=== PATIENT | female | born 1935 | race Caucasian/White ===

== ENCOUNTER 2019-02-07 01:02 | Inpatient (IN) | payer MEDICARE ==
[~2019-02-07] VITALS: Ht 162.6 cm; Wt 96.1 kg
[2019-02-07 02:16] LABS: CLARITY,URINE SLIGHTLY CLOUDY (Clear); COLOR,URINE YELLOW (Yellow); GLUCOSE, URINE NEGATIVE (Neg); KETONES,URINE TRACE mg/dl (Neg); LEUKOCYTE ESTERASE ,URINE TRACE (Neg); NITRITES, URINE NEGATIVE (Neg); OCCULT BLOOD,URINE NEGATIVE (Neg); PROTEIN,URINE 30 mg/dl (Neg); UROBILINOGEN,URINE 0.2 E.U/dL (0.2-1.0)
[2019-02-07 02:26] LABS: UA COLLECTION TYPE CLN CATCH MIDSTREAM
[2019-02-07 02:27] LABS: BACTERIA,URINE FEW /HPF (Neg); MUCUS STRANDS FEW /LPF (Neg); RBC,URINE 0-2 /HPF (0-2); RENAL CELLS, URINE FEW /HPF; SQUAMOUS EPITHELIAL CELL,UR FEW /LPF (FEW)
[2019-02-07] MEDS ORDERED: HYDROcodone/acetaminophen 10/325mg tab PO ONE (03:05)
[2019-02-07] MEDS ORDERED: ondansetron/PF 4mg/2ml inj IV ONE (03:05)
[2019-02-07] MEDS ORDERED: normal saline 1000ML IV soln IVB ONE ×2 (03:05→04:15)
[2019-02-07 03:22] LABS: BASOPHILS % (AUTO) 0.2 % (0-1); EOSINOPHILS % (AUTO) 0 % (0-6); HEMATOCRIT 46.9 % (35.0-45.0); HEMOGLOBIN 15.8 g/dl (12.0-16.0); LYMPHOCYTES # (AUTO) 0.6 X10'3 (1.1-4.8); LYMPHOCYTES % (AUTO) 4.7 % (21-51); MEAN CORPUSCULAR HEMOGLOBIN 29.6 PG (27.0-31.0); MEAN CORPUSCULAR HGB CONC 33.7 g/dL (33.0-36.5); MEAN CORPUSCULAR VOLUME 87.8 FL (78-98); MEAN PLATELET VOLUME 9.9 FL (7.4-10.4); MONOCYTES # (AUTO) 0.5 X10'3 (0-0.9); MONOCYTES % (AUTO) 3.9 % (2-12); NEUTROPHILS # (AUTO) 12.1 X10'3 (1.8-7.7); NEUTROPHILS % (AUTO) 91.2 % (42-75); PLATELET COUNT 246 X10'3 (140-440); RED BLOOD COUNT 5.34 X10'6 (4.20-5.60); RED CELL DISTRIBUTION WIDTH 14.5 % (11.5-14.5); WHITE BLOOD COUNT 13.3 X10'3 (4.5-11.0)
--- NOTE | 2019-02-07 03:40 | NUR ---
after taking po med she had episode of nausea and vomited 20 mls of the water she consumed but the po med was not in vomit bag. Pt layed down, cool washclothe to forehead and covered up. She is feeling no more nausea. Daughter at BS. Lights dimmed so she can rest.
[2019-02-07 03:50] LABS: ALANINE AMINOTRANSFERASE 17 U/L (12-78); ALBUMIN 3.7 G/DL (3.4-5.0); ALBUMIN/GLOBULIN RATIO 0.9 (1.1-1.5); ALKALINE PHOSPHATASE 122 IU/L (46-116); ANION GAP 11 (8-16); ASPARTATE AMINO TRANSFERASE 24 U/L (10-37); BILIRUBIN,TOTAL 0.8 MG/DL (0.1-1.0); BLOOD UREA NITROGEN 20 MG/DL (7-18); BUN/CREATININE RATIO 18.5 (6.6-38.0); CALCIUM 9.2 MG/DL (8.5-10.1); CHLORIDE 102 MMOL/L (99-107); CREATININE 1.08 MG/DL (0.40-0.90); GLUCOSE 125 MG/DL (70-104); LIPASE 87 U/L (73-393); SODIUM 136 MMOL/L (135-145); TOTAL PROTEIN 7.7 G/DL (6.4-8.2); eGFR 48 ML/MIN
[2019-02-07 03:51] LABS: POTASSIUM 4.5 MMOL/L (3.5-5.1)
[2019-02-07] MEDS ORDERED: piperacillin/tazo 3.375gm/50ml 50 ML IV ONE (04:15)
[2019-02-07] MEDS ORDERED: AMLO-93 PO (04:34)
[2019-02-07] MEDS ORDERED: OMEP40CA37 PO (04:34)
[2019-02-07] MEDS ORDERED: ZOLP5TAB8 PO (04:34)
[2019-02-07] MEDS ORDERED: FURO-150 PO (04:34)
[2019-02-07] MEDS ORDERED: SIMV20TA5 PO (04:34)
[2019-02-07] MEDS ORDERED: LISI40TA4 PO (04:34)
[2019-02-07] MEDS ORDERED: METO1TAB25 PO (04:34)
[2019-02-07] MEDS ORDERED: HYDROmorphone inj. 0.5 MG/0.5 ML DISP.SYRIN IV ONE (04:45)
[2019-02-07] MEDS ORDERED: magnesium hydroxide 30ml (MOM) UD suspension PO PRN (05:00)
[2019-02-07] MEDS ORDERED: morphine 2 MG/ML inj. syringe IV PRN ×2 (05:00)
[2019-02-07] MEDS ORDERED: acetaminophen 325mg tablet PO PRN ×2 (05:00)
[2019-02-07] MEDS ORDERED: mag hydrox/Alum hydrox/simeth 30ml oral suspension PO PRN (05:00)
--- NOTE | 2019-02-07 05:08 | NUR ---
PT UP TO BR WITH DAUGHTER
[2019-02-07] MEDS: normal saline 1000ml 1,000 ML IV SCH ×2 (06:43→16:26)
--- NOTE | 2019-02-07 07:37 | NUR ---
Received report from PHI Saldivar in Emergency Room. Patient arrived with family at bedside. Patient reports minimal pain at this time. Will continue to monitor.
[2019-02-07 07:45] VITALS: BP 160/66
[2019-02-07] MEDS ORDERED: non-formulary drug (Omeprazole (Prilosec) 0.5 CAP) PO SCH (08:00)
[2019-02-07] MEDS ORDERED: non-formulary drug (Metoprolol/Hydrochlorothiazide 50/25 MG* (Lopressor Hct 50/25 MG*) 1 T PO SCH (08:00)
[2019-02-07] MEDS: HYDROchlorothiazide 25mg tablet PO SCH (08:00)
[2019-02-07] MEDS ORDERED: non-formulary drug (Lisinopril* 1 TAB) PO SCH (08:00)
[2019-02-07] MEDS: pantoprazole 40mg Tablet.DR PO SCH (08:25)
[2019-02-07] MEDS: metoprolol tartrate 50mg tablet PO SCH (08:28)
[2019-02-07] MEDS: lisinopril 20mg tablet PO SCH (08:29)
[2019-02-07] MEDS: piperacillin/tazo 4.5gm/100ml 100 ML IV SCH ×3 (10:15→23:45)
[2019-02-07 11:30] VITALS: BP 120/63
[2019-02-07] MEDS ORDERED: HYDROmorphone 1 mg/ml syringe IV PRN (11:30)
[2019-02-07] MEDS: HYDROmorphone inj. 0.5 MG/0.5 ML DISP.SYRIN IV PRN ×2 (11:54→16:15)
--- NOTE | 2019-02-07 18:15 | NUR ---
Received report from PHI Foster. Patient is awake and alert on 2L NC, in no apparent distress. Call light and items of frequent use within reach. Will continue to monitor.
--- NOTE | 2019-02-07 18:30 | NUR ---
Problems reprioritized. Patient report given, questions answered & plan of care reviewed with PHI Ragland.
[2019-02-07 20:00] VITALS: BP 105/48
[2019-02-07] MEDS ORDERED: non-formulary drug (Simvastatin* (Zocor*) 2 TAB) PO SCH (21:00)
[2019-02-07] MEDS: HYDROcodone/acetaminophen 5mg/325mg tablet PO PRN (21:25)
[2019-02-07] MEDS: atorvastatin 10mg tablet PO SCH (21:25)
[2019-02-07] MEDS: zolpidem 5mg tablet PO PRN (21:29)
[2019-02-08] VITALS: BP 105/45
[2019-02-08] MEDS: normal saline 1000ml 1,000 ML IV SCH ×3 (00:57→19:31)
--- NOTE | 2019-02-08 06:15 | NUR ---
Problems reprioritized. Patient report given, questions answered & plan of care reviewed with PHI Goodrich.
[2019-02-08 06:17] LABS: BASOPHILS % (AUTO) 0.1 % (0-1); EOSINOPHILS % (AUTO) 0 % (0-6); HEMATOCRIT 36.8 % (35.0-45.0); HEMOGLOBIN 12.4 g/dl (12.0-16.0); LYMPHOCYTES # (AUTO) 1.1 X10'3 (1.1-4.8); LYMPHOCYTES % (AUTO) 7.2 % (21-51); MEAN CORPUSCULAR HEMOGLOBIN 29.8 PG (27.0-31.0); MEAN CORPUSCULAR HGB CONC 33.6 g/dL (33.0-36.5); MEAN CORPUSCULAR VOLUME 88.6 FL (78-98); MONOCYTES # (AUTO) 0.5 X10'3 (0-0.9); MONOCYTES % (AUTO) 3.1 % (2-12); NEUTROPHILS # (AUTO) 13.5 X10'3 (1.8-7.7); NEUTROPHILS % (AUTO) 89.6 % (42-75); PLATELET COUNT 179 X10'3 (140-440); RED BLOOD COUNT 4.15 X10'6 (4.20-5.60); RED CELL DISTRIBUTION WIDTH 14.9 % (11.5-14.5); WHITE BLOOD COUNT 15.1 X10'3 (4.5-11.0)
--- NOTE | 2019-02-08 06:25 | NUR ---
Patient in room [facility]I 359. I have received report from PHI Ragland and had the opportunity to ask questions and assume patient care.
[2019-02-08 06:33] LABS: ALBUMIN 2.4 G/DL (3.4-5.0); ANION GAP 9 (8-16); BLOOD UREA NITROGEN 25 MG/DL (7-18); BUN/CREATININE RATIO 22.1 (6.6-38.0); CALCIUM 8.7 MG/DL (8.5-10.1); CHLORIDE 105 MMOL/L (99-107); CREATININE 1.13 MG/DL (0.40-0.90); GLUCOSE 79 MG/DL (70-104); SODIUM 138 MMOL/L (135-145); TOTAL CARBON DIOXIDE 24.3 MMOL/L (24-32); eGFR 46 ML/MIN
[2019-02-08 07:36] LABS: PLATELET ESTIMATE NORMAL; TOTAL CELLS COUNTED 100
[2019-02-08 08:00] VITALS: BP 112/42
[2019-02-08] MEDS: pantoprazole 40mg Tablet.DR PO SCH (09:11)
[2019-02-08] MEDS: piperacillin/tazo 4.5gm/100ml 100 ML IV SCH ×3 (09:12→23:07)
[2019-02-08] MEDS: lisinopril 20mg tablet PO SCH (09:13)
[2019-02-08] MEDS: HYDROchlorothiazide 25mg tablet PO SCH (09:13)
[2019-02-08] MEDS: metoprolol tartrate 50mg tablet PO SCH (09:13)
[2019-02-08] MEDS: HYDROcodone/acetaminophen 10/325mg tab PO PRN ×3 (09:14→21:53)
[2019-02-08 11:20] VITALS: BP 114/57
--- NOTE | 2019-02-08 18:15 | NUR ---
Received report from PHI Goodrich. Assumed patient care. Call light and items of frequent use within reach. Will continue to monitor.
--- NOTE | 2019-02-08 18:20 | NUR ---
Problems reprioritized. Patient report given, questions answered & plan of care reviewed with PHI Ragland.
[2019-02-08] MEDS: lactobacillus rhamnosus 10,000 MMU CELLS/CAPSULE PO SCH (19:22)
[2019-02-08 20:00] VITALS: BP 129/37
[2019-02-08] MEDS: atorvastatin 10mg tablet PO SCH (21:53)
[2019-02-08] MEDS: zolpidem 5mg tablet PO PRN (23:07)
[2019-02-09] VITALS: BP 104/56
[2019-02-09 05:21] LABS: BASOPHILS % (AUTO) 0.1 % (0-1); EOSINOPHILS % (AUTO) 0.2 % (0-6); HEMATOCRIT 35.6 % (35.0-45.0); HEMOGLOBIN 11.8 g/dl (12.0-16.0); LYMPHOCYTES # (AUTO) 0.9 X10'3 (1.1-4.8); LYMPHOCYTES % (AUTO) 6.4 % (21-51); MEAN CORPUSCULAR HEMOGLOBIN 29.3 PG (27.0-31.0); MEAN CORPUSCULAR HGB CONC 33.2 g/dL (33.0-36.5); MEAN CORPUSCULAR VOLUME 88.3 FL (78-98); MEAN PLATELET VOLUME 9.6 FL (7.4-10.4); MONOCYTES # (AUTO) 0.5 X10'3 (0-0.9); MONOCYTES % (AUTO) 3.4 % (2-12); NEUTROPHILS # (AUTO) 12.8 X10'3 (1.8-7.7); NEUTROPHILS % (AUTO) 89.9 % (42-75); PLATELET COUNT 175 X10'3 (140-440); RED BLOOD COUNT 4.03 X10'6 (4.20-5.60); RED CELL DISTRIBUTION WIDTH 14.9 % (11.5-14.5); WHITE BLOOD COUNT 14.2 X10'3 (4.5-11.0)
[2019-02-09 05:50] LABS: ALBUMIN 2.2 G/DL (3.4-5.0); ANION GAP 9 (8-16); BLOOD UREA NITROGEN 27 MG/DL (7-18); BUN/CREATININE RATIO 23.5 (6.6-38.0); CALCIUM 8.6 MG/DL (8.5-10.1); CHLORIDE 104 MMOL/L (99-107); CREATININE 1.15 MG/DL (0.40-0.90); GLUCOSE 57 MG/DL (70-104); POTASSIUM 3.3 MMOL/L (3.5-5.1); SODIUM 136 MMOL/L (135-145); TOTAL CARBON DIOXIDE 22.9 MMOL/L (24-32); eGFR 45 ML/MIN
--- NOTE | 2019-02-09 06:30 | NUR ---
Problems reprioritized. Patient report given, questions answered & plan of care reviewed with PHI Beckman.
[2019-02-09 07:00] VITALS: BP 119/51
--- NOTE | 2019-02-09 07:11 | NUR ---
Patient in room JACKI 359. I have received report from warren YIP and had the opportunity to ask questions and assume patient care.
[2019-02-09] MEDS: piperacillin/tazo 4.5gm/100ml 100 ML IV SCH ×2 (09:12→16:25)
[2019-02-09] MEDS: HYDROchlorothiazide 25mg tablet PO SCH (09:12)
[2019-02-09] MEDS: lisinopril 20mg tablet PO SCH (09:12)
[2019-02-09] MEDS: lactobacillus rhamnosus 10,000 MMU CELLS/CAPSULE PO SCH ×2 (09:12→21:29)
[2019-02-09] MEDS: metoprolol tartrate 50mg tablet PO SCH (09:12)
[2019-02-09] MEDS: pantoprazole 40mg Tablet.DR PO SCH (09:16)
[2019-02-09] MEDS: HYDROcodone/acetaminophen 10/325mg tab PO PRN ×2 (09:17→23:00)
[2019-02-09] MEDS: normal saline 1000ml 1,000 ML IV SCH ×3 (09:20→19:45)
[2019-02-09] MEDS ORDERED: methylnaltrexone br 12mg/0.6ml inj***SubQ only SQ ONE (10:50)
[2019-02-09 11:00] VITALS: BP 99/61
[2019-02-09] MEDS ORDERED: magnesium Cl slow-release 64mg tablet PO PRN (11:05)
[2019-02-09] MEDS ORDERED: magnesium 2GM in 50ml NS 50 ML IV PRN (11:05)
[2019-02-09] MEDS ORDERED: potassium Cl 20 mEq SR tablet PO PRN ×2 (11:05)
[2019-02-09] MEDS ORDERED: magnesium 4gm in 100ml NS 100 ML IV PRN (11:05)
--- NOTE | 2019-02-09 12:00 | NUR ---
patient up ad fran to BR, to continue on icechips . family at bedside. B/P 99/61 in am rechecked 119/51. Realistor given, per dr whittington. Otherwise resting comfortably .Report given to Erin YIP
[2019-02-09] MEDS: potassium CL 10mEq/100ml bag 100 ML IV PRN ×2 (21:15→22:59)
[2019-02-09] MEDS: atorvastatin 10mg tablet PO SCH (21:29)
[2019-02-09] MEDS: zolpidem 5mg tablet PO PRN (22:59)
[2019-02-09 23:44] VITALS: BP 97/55
[2019-02-10] VITALS: BP 123/56
[2019-02-10] MEDS: piperacillin/tazo 4.5gm/100ml 100 ML IV SCH ×4 (00:36→23:23)
[2019-02-10] MEDS: normal saline 1000ml 1,000 ML IV SCH (02:57)
[2019-02-10] MEDS ORDERED: magnesium hydroxide 30ml (MOM) UD suspension PO ONE (05:55)
--- NOTE | 2019-02-10 06:00 | NUR ---
Patient in room JACKI 359. I have received report from CANDIE YIP and had the opportunity to ask questions and assume patient care.
[2019-02-10 06:10] LABS: BASOPHILS % (AUTO) 0 % (0-1); EOSINOPHILS # (AUTO) 0.1 X10'3 (0-0.9); EOSINOPHILS % (AUTO) 0.5 % (0-6); HEMATOCRIT 36.8 % (35.0-45.0); HEMOGLOBIN 12.5 g/dl (12.0-16.0); LYMPHOCYTES # (AUTO) 0.8 X10'3 (1.1-4.8); LYMPHOCYTES % (AUTO) 5.5 % (21-51); MEAN CORPUSCULAR HEMOGLOBIN 30.2 PG (27.0-31.0); MEAN PLATELET VOLUME 9.5 FL (7.4-10.4); MONOCYTES # (AUTO) 0.8 X10'3 (0-0.9); MONOCYTES % (AUTO) 5.7 % (2-12); NEUTROPHILS # (AUTO) 13.1 X10'3 (1.8-7.7); NEUTROPHILS % (AUTO) 88.3 % (42-75); PLATELET COUNT 185 X10'3 (140-440); RED BLOOD COUNT 4.13 X10'6 (4.20-5.60); WHITE BLOOD COUNT 14.9 X10'3 (4.5-11.0)
[2019-02-10 06:38] LABS: ANION GAP 13 (8-16); BLOOD UREA NITROGEN 24 MG/DL (7-18); CHLORIDE 104 MMOL/L (99-107); CREATININE 1.09 MG/DL (0.40-0.90); POTASSIUM 3.5 MMOL/L (3.5-5.1); SODIUM 136 MMOL/L (135-145); TOTAL CARBON DIOXIDE 18.7 MMOL/L (24-32); eGFR 48 ML/MIN
[2019-02-10 06:43] LABS: GLUCOSE 47 MG/DL (70-104)
[2019-02-10] MEDS ORDERED: dextrose 50%-water 50ml dispensing syringe IV PRN (06:50)
--- NOTE | 2019-02-10 06:51 | NUR ---
Problems reprioritized. Patient report given, questions answered & plan of care reviewed with Mercedez YIP.
[2019-02-10 07:00] VITALS: BP 121/48
[2019-02-10] MEDS: dextrose 5%-normal saline 1,000 ML IV SCH ×2 (07:00→17:27)
[2019-02-10] MEDS: lactobacillus rhamnosus 10,000 MMU CELLS/CAPSULE PO SCH ×2 (08:50→19:53)
[2019-02-10] MEDS: lisinopril 20mg tablet PO SCH (08:50)
[2019-02-10] MEDS: pantoprazole 40mg Tablet.DR PO SCH (08:50)
[2019-02-10] MEDS: metoprolol tartrate 50mg tablet PO SCH (08:51)
[2019-02-10] MEDS: HYDROchlorothiazide 25mg tablet PO SCH (08:51)
[2019-02-10] MEDS: diatr meglu/diatrizoate 30ml oral sol.-(3 dose) bottle PO SCH ×3 (08:52→15:53)
[2019-02-10 11:00] VITALS: BP 151/91
[2019-02-10] MEDS ORDERED: iohexol 300mg/ml 100ml inj. ONE (14:20)
[2019-02-10] MEDS: HYDROcodone/acetaminophen 10/325mg tab PO PRN (17:38)
--- NOTE | 2019-02-10 18:21 | NUR ---
Problems reprioritized. Patient report given, questions answered & plan of care reviewed with DONALD YIP.
--- NOTE | 2019-02-10 19:37 | NUR ---
Patient in room [facility] 359. I have received report from PHI Newsome and had the opportunity to ask questions and assume patient care. Addendum: 02/10/19 at 1938 by Hafsa Mcmahan RN Amended: Links added.
[2019-02-10] MEDS: potassium CL 20mEq in D5-1/2NS 1,000 ML IV SCH (19:53)
[2019-02-10] MEDS: atorvastatin 10mg tablet PO SCH (19:53)
[2019-02-10 20:00] VITALS: BP 106/79
[2019-02-10] MEDS: zolpidem 5mg tablet PO PRN (23:23)
[2019-02-11] VITALS (17 sets, daily range): BP systolic 98–184; BP diastolic 52–99
[2019-02-11] MEDS: potassium CL 20mEq in D5-1/2NS 1,000 ML IV SCH ×2 (03:30→14:01)
[2019-02-11 05:56] LABS: BASOPHILS % (AUTO) 0.1 % (0-1); EOSINOPHILS # (AUTO) 0.3 X10'3 (0-0.9); EOSINOPHILS % (AUTO) 2.2 % (0-6); HEMATOCRIT 38.2 % (35.0-45.0); HEMOGLOBIN 12.6 g/dl (12.0-16.0); LYMPHOCYTES % (AUTO) 7.7 % (21-51); MEAN CORPUSCULAR HEMOGLOBIN 29.2 PG (27.0-31.0); MEAN CORPUSCULAR VOLUME 88.4 FL (78-98); MEAN PLATELET VOLUME 8.7 FL (7.4-10.4); MONOCYTES # (AUTO) 1.4 X10'3 (0-0.9); MONOCYTES % (AUTO) 10.1 % (2-12); NEUTROPHILS # (AUTO) 10.8 X10'3 (1.8-7.7); NEUTROPHILS % (AUTO) 79.9 % (42-75); PLATELET COUNT 225 X10'3 (140-440); RED BLOOD COUNT 4.32 X10'6 (4.20-5.60); RED CELL DISTRIBUTION WIDTH 14.9 % (11.5-14.5); WHITE BLOOD COUNT 13.6 X10'3 (4.5-11.0)
[2019-02-11 06:03] LABS: ANION GAP 9 (8-16); BLOOD UREA NITROGEN 10 MG/DL (7-18); BUN/CREATININE RATIO 10.3 (6.6-38.0); CALCIUM 7.9 MG/DL (8.5-10.1); CHLORIDE 104 MMOL/L (99-107); CREATININE 0.97 MG/DL (0.40-0.90); GLUCOSE 130 MG/DL (70-104); SODIUM 137 MMOL/L (135-145); TOTAL CARBON DIOXIDE 24.3 MMOL/L (24-32); eGFR 55 ML/MIN
--- NOTE | 2019-02-11 06:26 | NUR ---
Problems reprioritized. Patient report given, questions answered & plan of care reviewed with PHI Brown. Addendum: 02/11/19 at 626 by Hafsa Mcmahan RN Amended: Links added.
[2019-02-11 06:32] LABS: POTASSIUM 2.7 MMOL/L (3.5-5.1)
--- NOTE | 2019-02-11 07:15 | NUR ---
PAGER ID: [phone] MESSAGE: [id number] Jaclyn Coats critical k 2.7, will replace per prot. BP 150/80 hr 102 (Maury), lisinopril, metoprolol, hydrochlorothiazide ordered. will admin. and reassess. Stephanie YIP [phone]
--- NOTE | 2019-02-11 07:37 | NUR ---
PAGER ID: [phone] MESSAGE: [id number] Jaclyn HART [facility]. please call me to let me know if this NPO pt. can take her oral medications. Thank you Stephanie [phone]
--- NOTE | 2019-02-11 07:39 | NUR ---
returned page. oked oral medications for this pt. this AM
[2019-02-11] MEDS: pantoprazole 40mg Tablet.DR PO SCH (07:42)
[2019-02-11] MEDS: HYDROchlorothiazide 25mg tablet PO SCH (07:43)
[2019-02-11] MEDS: lactobacillus rhamnosus 10,000 MMU CELLS/CAPSULE PO SCH ×2 (07:43→19:51)
[2019-02-11] MEDS: lisinopril 20mg tablet PO SCH (07:43)
[2019-02-11] MEDS: metoprolol tartrate 50mg tablet PO SCH ×2 (07:43→20:14)
[2019-02-11] MEDS: piperacillin/tazo 4.5gm/100ml 100 ML IV SCH (07:50)
[2019-02-11] MEDS: HYDROmorphone inj. 0.5 MG/0.5 ML DISP.SYRIN IV PRN ×2 (09:27→15:46)
[2019-02-11] MEDS ORDERED: fentaNYL/PF 50MCG/1 ML 2ML syringe IV PRN (10:50)
[2019-02-11] MEDS ORDERED: LIDOcaine 1% (10mg/ml) 2ml vial SQ ONE (10:50)
--- NOTE | 2019-02-11 10:57 | NUR ---
PAGER ID: [phone] MESSAGE: [id number] Jaclyn Coats Pt. BP now 141/78. Still tachy HR 113. Fluids running at 100/hr. Stephanie YIP 0125
[2019-02-11] MEDS ORDERED: fentaNYL/PF 50MCG/1 ML 2ML syringe ONE (11:14)
[2019-02-11] MEDS ORDERED: midazolam 2 mg/2 ml injection ONE (11:14)
[2019-02-11] MEDS ORDERED: ondansetron/PF 4mg/2ml inj ONE (11:15)
--- NOTE | 2019-02-11 12:22 | NUR ---
PAGER ID: [phone] MESSAGE: [phone] Jaclyn Coats IR report that pt. was reaching HR of 150s on monitor. EKG per protocol. EKG displaying pt. is in afib. Stephanie [phone]
[2019-02-11] MEDS: potassium CL 10mEq/100ml bag 100 ML IV PRN ×8 (14:03→23:29)
--- NOTE | 2019-02-11 15:15 | NUR ---
RECEIVED EKG, READ IT, SEE ORDERS.
[2019-02-11 17:01] LABS: MAGNESIUM 2.1 MG/DL (1.5-2.4); PHOSPHORUS 1.4 MG/DL (2.3-4.5)
[2019-02-11] MEDS: piperacillin/tazo 3.375gm/50ml 50 ML IV SCH ×2 (17:07→23:34)
--- NOTE | 2019-02-11 18:46 | NUR ---
MD AWARE OF PT.'S STATED DX OF ACHALASIA, NO NEW ORDERS AT THIS TIME.
--- NOTE | 2019-02-11 18:47 | NUR ---
GAVE REPORT TO CINDY. FLUIDS RUNNING PER ORDER. PT HAS NO STATED NEEDS AT THIS TIME.
--- NOTE | 2019-02-11 18:48 | NUR ---
Patient in room [facility]I 359. I have received report from PHI Brown and had the opportunity to ask questions and assume patient care.
[2019-02-11] MEDS: HYDROcodone/acetaminophen 10/325mg tab PO PRN (19:51)
[2019-02-11] MEDS: atorvastatin 10mg tablet PO SCH (20:00)
--- NOTE | 2019-02-11 20:09 | NUR ---
pt's HR 158 in afib. notified. He ordered cardizem 60 mg q6h.
[2019-02-11] MEDS: enoxaparin 80mg/0.8ml syringe SUBCUT SCH (20:13)
[2019-02-11] MEDS: diltiazem 30mg tablet PO SCH (20:15)
[2019-02-11] MEDS: zolpidem 5mg tablet PO PRN (23:32)
--- NOTE | 2019-02-11 23:33 | NUR ---
Patient out of breath while at rest, only urinated 50 so far and bladder scan showed 30ml, we weighed pt and found she has gained 18 lbs in 4 days. Called MD to ask for lasix, MD ordered fluids to be stopped, and did not want to give lasix. Will continue to monitor.
[2019-02-12] VITALS: BP 91/60
[2019-02-12] MEDS: diltiazem 30mg tablet PO SCH ×4 (02:41→20:50)
[2019-02-12 05:17] LABS: BASOPHILS % (AUTO) 0.1 % (0-1); EOSINOPHILS % (AUTO) 0.1 % (0-6); HEMATOCRIT 41.3 % (35.0-45.0); HEMOGLOBIN 13.5 g/dl (12.0-16.0); LYMPHOCYTES # (AUTO) 1.4 X10'3 (1.1-4.8); LYMPHOCYTES % (AUTO) 10.1 % (21-51); MEAN CORPUSCULAR HGB CONC 32.8 g/dL (33.0-36.5); MEAN CORPUSCULAR VOLUME 88.4 FL (78-98); MONOCYTES # (AUTO) 1.3 X10'3 (0-0.9); MONOCYTES % (AUTO) 9.3 % (2-12); NEUTROPHILS # (AUTO) 10.9 X10'3 (1.8-7.7); NEUTROPHILS % (AUTO) 80.4 % (42-75); PLATELET COUNT 268 X10'3 (140-440); RED BLOOD COUNT 4.67 X10'6 (4.20-5.60); RED CELL DISTRIBUTION WIDTH 15.1 % (11.5-14.5); WHITE BLOOD COUNT 13.6 X10'3 (4.5-11.0)
[2019-02-12 05:30] LABS: ALBUMIN 1.7 G/DL (3.4-5.0); ANION GAP 6 (8-16); BLOOD UREA NITROGEN 13 MG/DL (7-18); BUN/CREATININE RATIO 9.6 (6.6-38.0); CHLORIDE 104 MMOL/L (99-107); CREATININE 1.36 MG/DL (0.40-0.90); GLUCOSE 104 MG/DL (70-104); MAGNESIUM 2.1 MG/DL (1.5-2.4); PHOSPHORUS 1.3 MG/DL (2.3-4.5); POTASSIUM 5.2 MMOL/L (3.5-5.1); SODIUM 132 MMOL/L (135-145); TOTAL CARBON DIOXIDE 22.5 MMOL/L (24-32); eGFR 37 ML/MIN
--- NOTE | 2019-02-12 06:34 | NUR ---
Problems reprioritized. Patient report given, questions answered & plan of care reviewed with PHI Moss.
--- NOTE | 2019-02-12 07:13 | NUR ---
Pagedawn JETT regarding K+ and low urine output. awaiting response.
[2019-02-12 07:16] VITALS: BP 118/72
[2019-02-12] MEDS: pantoprazole 40mg Tablet.DR PO SCH (07:32)
[2019-02-12] MEDS: lactobacillus rhamnosus 10,000 MMU CELLS/CAPSULE PO SCH ×2 (07:32→20:50)
[2019-02-12] MEDS: HYDROchlorothiazide 25mg tablet PO SCH (07:32)
[2019-02-12] MEDS: metoprolol tartrate 50mg tablet PO SCH ×2 (07:33→20:50)
[2019-02-12] MEDS: Neutra Phos packet PO SCH ×3 (07:33→20:51)
[2019-02-12] MEDS: enoxaparin 80mg/0.8ml syringe SUBCUT SCH ×2 (07:34→20:51)
[2019-02-12] MEDS: piperacillin/tazo 3.375gm/50ml 50 ML IV SCH ×3 (07:34→23:42)
[2019-02-12] MEDS: ondansetron/PF 4mg/2ml inj IV PRN (10:43)
[2019-02-12] MEDS: HYDROmorphone inj. 0.5 MG/0.5 ML DISP.SYRIN IV PRN (10:43)
[2019-02-12 11:35] VITALS: BP 101/61
--- NOTE | 2019-02-12 14:55 | NUR ---
initial: Patient in on full liquid diet starting this morning d/t diverticulitis with perforation and abscess formation per MD note, and pt is s/p percutaneous drainage. Was on clear liquids, sips and chips prior to full liquid diet. Poor PO intake for 4 days. Patient met at bedside and given written nutrition therapy handout for low fiber, high fiber with verbal review and discussed differences in nutrition needs with diverticulitis and diverticulosis. Patient declined all ONS. Recommend: 1. Advance diet as medically indicated to low fiber/low residue 2. Weight per rx Addendum: 02/12/19 at [address] Amended: Links added.
[2019-02-12] MEDS ORDERED: furosemide 20 MG/2 ML vial IV ONE (17:40)
[2019-02-12 17:50] VITALS: BP 115/65
[2019-02-12 18:00] VITALS: BP 145/84
--- NOTE | 2019-02-12 18:35 | NUR ---
Problems reprioritized. Patient report given, questions answered & plan of care reviewed with PHI Modi.
--- NOTE | 2019-02-12 18:36 | NUR ---
Patient in room [facility]I 359. I have received report from PHI Moss and had the opportunity to ask questions and assume patient care.
[2019-02-12] MEDS: atorvastatin 10mg tablet PO SCH (20:51)
[2019-02-13] VITALS: BP 90/60
[2019-02-13] MEDS: diltiazem 30mg tablet PO SCH ×4 (02:04→20:46)
--- NOTE | 2019-02-13 06:30 | NUR ---
Problems reprioritized. Patient report given, questions answered & plan of care reviewed with PHI Avilez.
--- NOTE | 2019-02-13 07:05 | NUR ---
Patient in room [facility]I 359. I have received report from Rian YIP and had the opportunity to ask questions and assume patient care.
[2019-02-13 07:07] VITALS: BP 126/59
[2019-02-13] MEDS ORDERED: furosemide 20 MG/2 ML vial IV SCH (08:00)
[2019-02-13] MEDS: lactobacillus rhamnosus 10,000 MMU CELLS/CAPSULE PO SCH ×2 (08:02→20:46)
[2019-02-13] MEDS: pantoprazole 40mg Tablet.DR PO SCH (08:03)
[2019-02-13] MEDS: metoprolol tartrate 50mg tablet PO SCH ×2 (08:03→20:47)
[2019-02-13] MEDS: Neutra Phos packet PO SCH ×3 (08:03→20:47)
[2019-02-13] MEDS: piperacillin/tazo 3.375gm/50ml 50 ML IV SCH ×3 (08:04→23:25)
[2019-02-13] MEDS: enoxaparin 80mg/0.8ml syringe SUBCUT SCH (08:04)
[2019-02-13] MEDS: HYDROmorphone inj. 0.5 MG/0.5 ML DISP.SYRIN IV PRN ×3 (08:31→23:31)
[2019-02-13 10:49] LABS: BASOPHILS % (AUTO) 0.1 % (0-1); EOSINOPHILS % (AUTO) 0.3 % (0-6); HEMATOCRIT 38.3 % (35.0-45.0); HEMOGLOBIN 12.6 g/dl (12.0-16.0); LYMPHOCYTES % (AUTO) 5.5 % (21-51); MEAN CORPUSCULAR HGB CONC 32.9 g/dL (33.0-36.5); MEAN CORPUSCULAR VOLUME 88.3 FL (78-98); MEAN PLATELET VOLUME 8.3 FL (7.4-10.4); MONOCYTES # (AUTO) 1.2 X10'3 (0-0.9); MONOCYTES % (AUTO) 6.7 % (2-12); NEUTROPHILS # (AUTO) 15.2 X10'3 (1.8-7.7); NEUTROPHILS % (AUTO) 87.4 % (42-75); PLATELET COUNT 310 X10'3 (140-440); RED BLOOD COUNT 4.34 X10'6 (4.20-5.60); RED CELL DISTRIBUTION WIDTH 15.2 % (11.5-14.5); WHITE BLOOD COUNT 17.4 X10'3 (4.5-11.0)
[2019-02-13 10:58] LABS: ALANINE AMINOTRANSFERASE 7 U/L (12-78); ALBUMIN 1.6 G/DL (3.4-5.0); ALBUMIN/GLOBULIN RATIO 0.4 (1.1-1.5); ALKALINE PHOSPHATASE 137 IU/L (46-116); ANION GAP 9 (8-16); ASPARTATE AMINO TRANSFERASE 9 U/L (10-37); BILIRUBIN,TOTAL 0.5 MG/DL (0.1-1.0); BLOOD UREA NITROGEN 23 MG/DL (7-18); BUN/CREATININE RATIO 12.8 (6.6-38.0); CALCIUM 7.9 MG/DL (8.5-10.1); CHLORIDE 99 MMOL/L (99-107); CREATININE 1.79 MG/DL (0.40-0.90); GLUCOSE 106 MG/DL (70-104); POTASSIUM 4.1 MMOL/L (3.5-5.1); SODIUM 131 MMOL/L (135-145); TOTAL CARBON DIOXIDE 22.8 MMOL/L (24-32); TOTAL PROTEIN 5.5 G/DL (6.4-8.2); eGFR 27 ML/MIN
[2019-02-13 11:00] VITALS: BP 118/53
--- NOTE | 2019-02-13 12:21 | NUR ---
Irrigated KYLE per MD orders
[2019-02-13] MEDS ORDERED: acetylcysteine 200 MG/ml 4ml vial PO ONE (14:45)
[2019-02-13 14:47] LABS: PHOSPHORUS 3.2 MG/DL (2.3-4.5)
[2019-02-13] MEDS: sodium bicarbonate (8.4%) inj. 50 MEQ in sodium chloride 0.45% 950 ML IV SCH ×2 (15:51→23:37)
--- NOTE | 2019-02-13 18:30 | NUR ---
Patient in room [facility]I 359. I have received report from PHI MCCLELLAN and had the opportunity to ask questions and assume patient care. Addendum: 02/13/19 at 1858 by Saulo Patel RN Amended: Links added.
--- NOTE | 2019-02-13 18:37 | NUR ---
Problems reprioritized. Patient report given, questions answered & plan of care reviewed with Shauna YIP.
[2019-02-13 20:15] VITALS: BP 109/54
[2019-02-13] MEDS: atorvastatin 10mg tablet PO SCH (20:47)
[2019-02-13] MEDS: acetylcysteine 200 MG/ml 4ml vial PO SCH (20:53)
[2019-02-13] MEDS: zolpidem 5mg tablet PO PRN (23:30)
[2019-02-13] MEDS: ondansetron/PF 4mg/2ml inj IV PRN (23:30)
[2019-02-14] VITALS: BP 107/63
[2019-02-14] MEDS: diltiazem 30mg tablet PO SCH ×4 (02:00→19:38)
[2019-02-14 05:45] LABS: ALANINE AMINOTRANSFERASE 7 U/L (12-78); ALBUMIN 1.7 G/DL (3.4-5.0); ALBUMIN/GLOBULIN RATIO 0.4 (1.1-1.5); ALKALINE PHOSPHATASE 144 IU/L (46-116); ANION GAP 11 (8-16); ASPARTATE AMINO TRANSFERASE 11 U/L (10-37); BILIRUBIN,TOTAL 0.5 MG/DL (0.1-1.0); BLOOD UREA NITROGEN 21 MG/DL (7-18); BUN/CREATININE RATIO 13.1 (6.6-38.0); CALCIUM 7.7 MG/DL (8.5-10.1); CHLORIDE 95 MMOL/L (99-107); GLUCOSE 78 MG/DL (70-104); MAGNESIUM 1.9 MG/DL (1.5-2.4); PHOSPHORUS 3.7 MG/DL (2.3-4.5); POTASSIUM 3.4 MMOL/L (3.5-5.1); SODIUM 130 MMOL/L (135-145); TOTAL CARBON DIOXIDE 23.8 MMOL/L (24-32); TOTAL PROTEIN 6.1 G/DL (6.4-8.2); eGFR 31 ML/MIN
[2019-02-14 05:47] LABS: BASOPHILS % (AUTO) 0.1 % (0-1); EOSINOPHILS # (AUTO) 0.1 X10'3 (0-0.9); EOSINOPHILS % (AUTO) 0.7 % (0-6); HEMATOCRIT 40.2 % (35.0-45.0); HEMOGLOBIN 13.2 g/dl (12.0-16.0); LYMPHOCYTES # (AUTO) 1.7 X10'3 (1.1-4.8); LYMPHOCYTES % (AUTO) 8.8 % (21-51); MEAN CORPUSCULAR HEMOGLOBIN 28.8 PG (27.0-31.0); MEAN CORPUSCULAR HGB CONC 32.9 g/dL (33.0-36.5); MEAN CORPUSCULAR VOLUME 87.5 FL (78-98); MONOCYTES # (AUTO) 1.2 X10'3 (0-0.9); MONOCYTES % (AUTO) 6.2 % (2-12); NEUTROPHILS # (AUTO) 16.7 X10'3 (1.8-7.7); NEUTROPHILS % (AUTO) 84.2 % (42-75); PLATELET COUNT 344 X10'3 (140-440); RED BLOOD COUNT 4.59 X10'6 (4.20-5.60); WHITE BLOOD COUNT 19.8 X10'3 (4.5-11.0)
--- NOTE | 2019-02-14 06:13 | NUR ---
Problems reprioritized. Patient report given, questions answered & plan of care reviewed with PHI Avilez. Addendum: 02/14/19 at 06 by Saulo Patel RN Amended: Links added.
[2019-02-14 07:00] VITALS: BP 129/70
[2019-02-14 07:16] LABS: ANISOCYTOSIS 1+; PLATELET ESTIMATE NORMAL; POLYCHROMASIA 1+; TOTAL CELLS COUNTED 100; TOXIC GRANULATION 3+
[2019-02-14] MEDS: Neutra Phos packet PO SCH ×2 (08:00→19:42)
[2019-02-14] MEDS: metoprolol tartrate 50mg tablet PO SCH ×2 (09:35→19:40)
[2019-02-14] MEDS: diatr meglu/diatrizoate 30ml oral sol.-(3 dose) bottle PO SCH ×3 (09:35→14:27)
[2019-02-14] MEDS: lactobacillus rhamnosus 10,000 MMU CELLS/CAPSULE PO SCH ×2 (09:35→19:38)
[2019-02-14] MEDS: pantoprazole 40mg Tablet.DR PO SCH (09:35)
[2019-02-14] MEDS: piperacillin/tazo 3.375gm/50ml 50 ML IV SCH ×3 (09:36→23:41)
[2019-02-14] MEDS: acetylcysteine 200 MG/ml 4ml vial PO SCH ×2 (09:36→19:37)
[2019-02-14] MEDS: enoxaparin 80mg/0.8ml syringe SUBCUT SCH (09:37)
[2019-02-14] MEDS: sodium bicarbonate (8.4%) inj. 50 MEQ in sodium chloride 0.45% 950 ML IV SCH ×3 (09:41→15:12)
[2019-02-14] MEDS: HYDROmorphone inj. 0.5 MG/0.5 ML DISP.SYRIN IV PRN ×3 (09:44→23:42)
[2019-02-14 11:00] VITALS: BP 109/60
--- NOTE | 2019-02-14 11:37 | NUR ---
Per Dr Rosa Ok to hold Neutraphos for now patient has lots of oral Pills this morning and does not tolerate very well
[2019-02-14] MEDS: ondansetron/PF 4mg/2ml inj IV PRN (15:12)
[2019-02-14] MEDS ORDERED: iohexol 300mg/ml 100ml inj. ONE (15:53)
[2019-02-14] MEDS ORDERED: magnesium Cl slow-release 64mg tablet PO PRN (17:40)
[2019-02-14] MEDS ORDERED: magnesium 4gm in 100ml NS 100 ML IV PRN (17:40)
[2019-02-14] MEDS ORDERED: potassium Cl 20 mEq SR tablet PO PRN ×2 (17:40)
[2019-02-14] MEDS: sodium chloride 0.45% 1,000 ML IV SCH (17:56)
--- NOTE | 2019-02-14 18:26 | NUR ---
Patient in room [facility]I 359. I have received report from PHI Avilez and had the opportunity to ask questions and assume patient care.
--- NOTE | 2019-02-14 19:00 | NUR ---
Problems reprioritized. Patient report given, questions answered & plan of care reviewed with Ellyn YIP and Onur RN.
[2019-02-14 19:20] LABS: MAGNESIUM 1.9 MG/DL (1.5-2.4); POTASSIUM 3.1 MMOL/L (3.5-5.1)
[2019-02-14] MEDS: atorvastatin 10mg tablet PO SCH (19:41)
[2019-02-14 20:00] VITALS: BP 147/71
[2019-02-14] MEDS ORDERED: POTASSIUM BICARB 20meq eff tab 20 MEQ TABLET.EFF PO PRN ×2 (21:18→21:19)
[2019-02-14] MEDS: zolpidem 5mg tablet PO PRN (23:42)
[2019-02-15] VITALS (14 sets, daily range): BP systolic 96–152; BP diastolic 28–79
[2019-02-15] MEDS: diltiazem 30mg tablet PO SCH ×4 (03:03→20:35)
[2019-02-15] MEDS: potassium CL 10mEq/100ml bag 100 ML IV PRN (03:17)
[2019-02-15] MEDS: sodium chloride 0.45% 1,000 ML IV SCH ×3 (04:05→16:34)
[2019-02-15 05:42] LABS: BASOPHILS % (AUTO) 0 % (0-1); EOSINOPHILS # (AUTO) 0.1 X10'3 (0-0.9); EOSINOPHILS % (AUTO) 0.5 % (0-6); HEMATOCRIT 37.3 % (35.0-45.0); HEMOGLOBIN 12.6 g/dl (12.0-16.0); LYMPHOCYTES # (AUTO) 0.8 X10'3 (1.1-4.8); LYMPHOCYTES % (AUTO) 5.1 % (21-51); MEAN CORPUSCULAR HEMOGLOBIN 29.3 PG (27.0-31.0); MEAN CORPUSCULAR HGB CONC 33.7 g/dL (33.0-36.5); MEAN CORPUSCULAR VOLUME 86.9 FL (78-98); MEAN PLATELET VOLUME 7.6 FL (7.4-10.4); MONOCYTES # (AUTO) 0.9 X10'3 (0-0.9); MONOCYTES % (AUTO) 6.1 % (2-12); NEUTROPHILS # (AUTO) 13.6 X10'3 (1.8-7.7); NEUTROPHILS % (AUTO) 88.3 % (42-75); PLATELET COUNT 354 X10'3 (140-440); RED BLOOD COUNT 4.29 X10'6 (4.20-5.60); RED CELL DISTRIBUTION WIDTH 15.1 % (11.5-14.5); WHITE BLOOD COUNT 15.4 X10'3 (4.5-11.0)
[2019-02-15 06:03] LABS: ALANINE AMINOTRANSFERASE 6 U/L (12-78); ALBUMIN 1.6 G/DL (3.4-5.0); ALBUMIN/GLOBULIN RATIO 0.4 (1.1-1.5); ALKALINE PHOSPHATASE 139 IU/L (46-116); ANION GAP 10 (8-16); ASPARTATE AMINO TRANSFERASE 15 U/L (10-37); BILIRUBIN,TOTAL 0.5 MG/DL (0.1-1.0); BLOOD UREA NITROGEN 17 MG/DL (7-18); BUN/CREATININE RATIO 13.3 (6.6-38.0); CALCIUM 7.4 MG/DL (8.5-10.1); CHLORIDE 96 MMOL/L (99-107); CREATININE 1.28 MG/DL (0.40-0.90); GLUCOSE 72 MG/DL (70-104); MAGNESIUM 1.9 MG/DL (1.5-2.4); PHOSPHORUS 3.6 MG/DL (2.3-4.5); POTASSIUM 3.6 MMOL/L (3.5-5.1); SODIUM 131 MMOL/L (135-145); TOTAL CARBON DIOXIDE 24.6 MMOL/L (24-32); TOTAL PROTEIN 5.8 G/DL (6.4-8.2); eGFR 40 ML/MIN
--- NOTE | 2019-02-15 06:30 | NUR ---
Problems reprioritized. Patient report given, questions answered & plan of care reviewed with PHI Colby.
--- NOTE | 2019-02-15 06:32 | NUR ---
I have reviewed and agree with all interventions, assessments performed and documented by PHI Mohr. Problems reprioritized. Patient report given, questions answered & plan of care reviewed with PHI Camacho.
--- NOTE | 2019-02-15 06:40 | NUR ---
Patient in room [facility] 359. I have received report from Onur/Ellyn YIP and had the opportunity to ask questions and assume patient care.
[2019-02-15] MEDS: Neutra Phos packet PO SCH ×2 (08:00→20:36)
[2019-02-15] MEDS ORDERED: fentaNYL/PF 50MCG/1 ML 2ML syringe IV PRN (08:25)
[2019-02-15] MEDS ORDERED: LIDOcaine 1%/PF 5ML 10 MG/ML VIAL SQ ONE (08:25)
[2019-02-15] MEDS: lactobacillus rhamnosus 10,000 MMU CELLS/CAPSULE PO SCH ×2 (08:41→20:36)
[2019-02-15] MEDS: pantoprazole 40mg Tablet.DR PO SCH (08:41)
[2019-02-15] MEDS: metoprolol tartrate 50mg tablet PO SCH ×2 (08:42→20:35)
[2019-02-15] MEDS ORDERED: fentaNYL/PF 50MCG/1 ML 2ML syringe ONE (08:49)
[2019-02-15] MEDS: piperacillin/tazo 3.375gm/50ml 50 ML IV SCH (09:54)
[2019-02-15] MEDS: acetylcysteine 200 MG/ml 4ml vial PO SCH ×2 (10:10→20:33)
[2019-02-15] MEDS: ondansetron/PF 4mg/2ml inj IV PRN ×2 (13:23→20:22)
[2019-02-15] MEDS: HYDROmorphone inj. 0.5 MG/0.5 ML DISP.SYRIN IV PRN ×2 (13:34→21:03)
--- NOTE | 2019-02-15 16:24 | NUR ---
reassessment: Pt NPO for new lower quadrant drain place by IR for further perforated diverticular abscess drainage. 65ml output first drain today. Pt previously on clear then to full liquids then to clears now NPO. Pt will need ONS once PO diet advanced again for additional protein/kcal needs. LBM 02/14 x2. Will monitor for diet advancement. Recommend: 1. Advance diet as medically indicated to low fiber/low residue 2. ONS once PO diet ordered 3. nutrition support IF remains NPO given 7-10 days lack of nutrition intake 4. Weight per rx Addendum: 02/15/19 at [address] Amended: Links added.
[2019-02-15] MEDS: piperacillin/tazo 4.5gm/100ml 100 ML IV SCH ×2 (16:28→23:35)
--- NOTE | 2019-02-15 18:00 | NUR ---
Patient in room [facility]I 355. I have received report from PHI Colby and had the opportunity to ask questions and assume patient care.
--- NOTE | 2019-02-15 18:30 | NUR ---
Problems reprioritized. Patient report given, questions answered & plan of care reviewed with Onur/Ellyn YIP.
[2019-02-15] MEDS: atorvastatin 10mg tablet PO SCH (20:35)
[2019-02-15] MEDS: zolpidem 5mg tablet PO PRN (23:34)
[2019-02-16] VITALS: BP 125/70
[2019-02-16] MEDS: sodium chloride 0.45% 1,000 ML IV SCH (01:49)
[2019-02-16] MEDS: diltiazem 30mg tablet PO SCH ×4 (01:50→20:13)
[2019-02-16 05:30] LABS: BASOPHILS % (AUTO) 0.1 % (0-1); EOSINOPHILS # (AUTO) 0.1 X10'3 (0-0.9); EOSINOPHILS % (AUTO) 0.9 % (0-6); HEMATOCRIT 37.6 % (35.0-45.0); HEMOGLOBIN 12.4 g/dl (12.0-16.0); LYMPHOCYTES # (AUTO) 0.9 X10'3 (1.1-4.8); LYMPHOCYTES % (AUTO) 6.8 % (21-51); MEAN CORPUSCULAR HEMOGLOBIN 28.6 PG (27.0-31.0); MEAN CORPUSCULAR HGB CONC 32.9 g/dL (33.0-36.5); MEAN PLATELET VOLUME 7.6 FL (7.4-10.4); MONOCYTES # (AUTO) 0.9 X10'3 (0-0.9); MONOCYTES % (AUTO) 6.8 % (2-12); NEUTROPHILS # (AUTO) 11.5 X10'3 (1.8-7.7); NEUTROPHILS % (AUTO) 85.4 % (42-75); PLATELET COUNT 380 X10'3 (140-440); RED BLOOD COUNT 4.32 X10'6 (4.20-5.60); RED CELL DISTRIBUTION WIDTH 14.8 % (11.5-14.5); WHITE BLOOD COUNT 13.4 X10'3 (4.5-11.0)
[2019-02-16 05:44] LABS: ALANINE AMINOTRANSFERASE 8 U/L (12-78); ALBUMIN 1.5 G/DL (3.4-5.0); ALBUMIN/GLOBULIN RATIO 0.4 (1.1-1.5); ALKALINE PHOSPHATASE 117 IU/L (46-116); ANION GAP 9 (8-16); ASPARTATE AMINO TRANSFERASE 16 U/L (10-37); BILIRUBIN,TOTAL 0.4 MG/DL (0.1-1.0); BLOOD UREA NITROGEN 12 MG/DL (7-18); BUN/CREATININE RATIO 10.2 (6.6-38.0); CALCIUM 7.9 MG/DL (8.5-10.1); CHLORIDE 97 MMOL/L (99-107); CREATININE 1.18 MG/DL (0.40-0.90); GLUCOSE 67 MG/DL (70-104); MAGNESIUM 1.9 MG/DL (1.5-2.4); PHOSPHORUS 3.3 MG/DL (2.3-4.5); POTASSIUM 3.6 MMOL/L (3.5-5.1); SODIUM 131 MMOL/L (135-145); TOTAL PROTEIN 5.6 G/DL (6.4-8.2); eGFR 44 ML/MIN
--- NOTE | 2019-02-16 06:00 | NUR ---
Problems reprioritized. Patient report given, questions answered & plan of care reviewed with PHI Amaral.
--- NOTE | 2019-02-16 06:19 | NUR ---
Patient in room [facility]I 359. I have received report from PHI Ragland and brown Mohr RN and had the opportunity to ask questions and assume patient care.
[2019-02-16 07:25] VITALS: BP 141/71
[2019-02-16] MEDS: lactobacillus rhamnosus 10,000 MMU CELLS/CAPSULE PO SCH ×2 (08:00→20:13)
[2019-02-16] MEDS: pantoprazole 40mg Tablet.DR PO SCH (08:38)
[2019-02-16] MEDS: piperacillin/tazo 4.5gm/100ml 100 ML IV SCH ×2 (08:38→16:00)
[2019-02-16] MEDS: metoprolol tartrate 50mg tablet PO SCH ×2 (08:38→20:14)
[2019-02-16] MEDS: Neutra Phos packet PO SCH (08:38)
[2019-02-16] MEDS: acetylcysteine 200 MG/ml 4ml vial PO SCH (08:39)
[2019-02-16] MEDS: enoxaparin 80mg/0.8ml syringe SUBCUT SCH (08:39)
[2019-02-16 12:00] VITALS: BP 120/60
[2019-02-16 18:00] VITALS: BP 121/73
--- NOTE | 2019-02-16 18:06 | NUR ---
Patient in room [facility]I 345. I have received report from PHI Amaral and had the opportunity to ask questions and assume patient care.
--- NOTE | 2019-02-16 18:29 | NUR ---
Problems reprioritized. Patient report given, questions answered & plan of care reviewed with PHI Ragland and brown Mohr RN.
[2019-02-16] MEDS: HYDROcodone/acetaminophen 5mg/325mg tablet PO PRN (20:15)
[2019-02-16] MEDS: atorvastatin 10mg tablet PO SCH (20:15)
[2019-02-17] VITALS: BP 151/79
[2019-02-17] MEDS: zolpidem 5mg tablet PO PRN (00:25)
[2019-02-17] MEDS: piperacillin/tazo 4.5gm/100ml 100 ML IV SCH ×3 (00:25→17:02)
[2019-02-17] MEDS: diltiazem 30mg tablet PO SCH ×4 (02:05→22:04)
[2019-02-17 05:39] LABS: BASOPHILS % (AUTO) 0.1 % (0-1); EOSINOPHILS # (AUTO) 0.1 X10'3 (0-0.9); EOSINOPHILS % (AUTO) 0.8 % (0-6); HEMOGLOBIN 12.2 g/dl (12.0-16.0); LYMPHOCYTES # (AUTO) 0.8 X10'3 (1.1-4.8); MEAN CORPUSCULAR HEMOGLOBIN 29.2 PG (27.0-31.0); MEAN CORPUSCULAR HGB CONC 33.9 g/dL (33.0-36.5); MEAN CORPUSCULAR VOLUME 86.1 FL (78-98); MEAN PLATELET VOLUME 7.6 FL (7.4-10.4); MONOCYTES # (AUTO) 0.8 X10'3 (0-0.9); MONOCYTES % (AUTO) 6.8 % (2-12); NEUTROPHILS # (AUTO) 10.2 X10'3 (1.8-7.7); NEUTROPHILS % (AUTO) 85.3 % (42-75); PLATELET COUNT 433 X10'3 (140-440); RED BLOOD COUNT 4.19 X10'6 (4.20-5.60); RED CELL DISTRIBUTION WIDTH 14.7 % (11.5-14.5); WHITE BLOOD COUNT 11.9 X10'3 (4.5-11.0)
[2019-02-17 05:50] LABS: ALBUMIN 1.5 G/DL (3.4-5.0); BILIRUBIN,TOTAL 0.4 MG/DL (0.1-1.0); CREATININE 0.97 MG/DL (0.40-0.90); POTASSIUM 3.1 MMOL/L (3.5-5.1); eGFR 55 ML/MIN
--- NOTE | 2019-02-17 06:15 | NUR ---
Patient in room [facility] 359. I have received report from Ellyn YIP and Onur YIP and had the opportunity to ask questions and assume patient care.
--- NOTE | 2019-02-17 06:25 | NUR ---
Problems reprioritized. Patient report given, questions answered & plan of care reviewed with PHI Kraus.
[2019-02-17 06:41] LABS: ALANINE AMINOTRANSFERASE 6 U/L (12-78); ALBUMIN/GLOBULIN RATIO 0.4 (1.1-1.5); ALKALINE PHOSPHATASE 100 IU/L (46-116); ANION GAP 15 (8-16); ASPARTATE AMINO TRANSFERASE 17 U/L (10-37); BLOOD UREA NITROGEN 10 MG/DL (7-18); BUN/CREATININE RATIO 10.3 (6.6-38.0); CALCIUM 7.4 MG/DL (8.5-10.1); CHLORIDE 97 MMOL/L (99-107); GLUCOSE 74 MG/DL (70-104); PHOSPHORUS 2.6 MG/DL (2.3-4.5); SODIUM 133 MMOL/L (135-145); TOTAL CARBON DIOXIDE 21.4 MMOL/L (24-32); TOTAL PROTEIN 5.4 G/DL (6.4-8.2)
[2019-02-17 07:14] VITALS: BP 125/59
[2019-02-17] MEDS: pantoprazole 40mg Tablet.DR PO SCH (08:00)
[2019-02-17] MEDS: enoxaparin 80mg/0.8ml syringe SUBCUT SCH (08:00)
[2019-02-17] MEDS: lactobacillus rhamnosus 10,000 MMU CELLS/CAPSULE PO SCH ×2 (08:00→20:00)
[2019-02-17] MEDS: metoprolol tartrate 50mg tablet PO SCH ×2 (08:00→22:04)
[2019-02-17] MEDS: ondansetron/PF 4mg/2ml inj IV PRN (08:05)
[2019-02-17] MEDS: potassium CL 10mEq/100ml bag 100 ML IV PRN ×4 (08:18→12:15)
[2019-02-17 11:55] VITALS: BP 139/70
--- NOTE | 2019-02-17 15:08 | NUR ---
Dr. Dennis paged regarding pt needs PICC line for TPN order. Awaiting call back.
--- NOTE | 2019-02-17 15:49 | NUR ---
TPN consult. Patient is on clear liquid diet after draining of diverticular abscess. Patient has not had adequate nutrition for 9 days. Currently not tolerating clear liquids, patient also has achalasia and per patient she gets dilation often. Patient may ultimately be a candidate for a PEG for nutrition in the future if achalasia is preventing from adequate PO intake, likely does not need a PEG this visit. discussed above with and RN. . Pt may be candidate for TPN via PICC line. Pt also has achalasia needing dilation often, may also be candidate for PEG eventually. TPN recs below, d/w pharmacy. Will continue to follow. Recommend: 1. 2:1 TPN per PICC using Clinimix E 5/20 at 80 ml/hr will provide total volume 1920 ml, 96 g protein, 384 g dextrose, 2.75 mg/kg/min CHO loading. 2. Separate lipids using a total of 252 ml 20% intralipids to run for 12 hours at 21 ml/hr will provide 50 g lipids. 3. TPN and lipids will provide 1806 total non protein calories, 2190 total cals 1. Advance diet as medically indicated to low fiber/low residue 2. continue ensure clear Addendum: 02/17/19 at [address] Amended: Links added. Addendum: 02/17/19 at [address] TPN consult. Patient is on clear liquid diet after draining of diverticular abscess. Patient has not had adequate nutrition for 9 days. Currently not tolerating clear liquids, patient also has achalasia and per patient she gets dilation often. Patient may ultimately be a candidate for a PEG for nutrition in the future if achalasia is preventing from adequate PO intake, likely does not need a PEG this visit. discussed above with MD and RN. . Pt may be candidate for TPN via PICC line. Pt also has achalasia needing dilation often, may also be candidate for PEG eventually. Patient is pending PICC placement, TPN recs below, d/w pharmacy. Will continue to follow. Recommend: 1. 2:1 TPN per PICC using Clinimix E 5/20 at 80 ml/hr will provide total volume 1920 ml, 96 g protein, 384 g dextrose, 2.75 mg/kg/min CHO loading. 2. Separate lipids using a total of 252 ml 20% intralipids to run for 12 hours at 21 ml/hr will provide 50 g lipids. 3. TPN and lipids will provide 1806 total non protein calories, 2190 total cals 4. Advance diet as medically indicated to low fiber/low residue 5. continue ensure clear
[2019-02-17] MEDS ORDERED: Dextrose 10%-water IV solution 1,000 ML IV PRN (15:59)
[2019-02-17] MEDS ORDERED: fat emulsion IV 181.82 ML, MVI, adult No.4 with vit. K 4.55 ML, Trace element-5 inj. 0.... IV SCH ×4 (15:59)
[2019-02-17] MEDS ORDERED: magnesium Cl slow-release 64mg tablet PO PRN (16:00)
[2019-02-17] MEDS ORDERED: magnesium 2GM in 50ml NS 50 ML IV PRN (16:00)
[2019-02-17] MEDS ORDERED: magnesium 4gm in 100ml NS 100 ML IV PRN (16:00)
--- NOTE | 2019-02-17 18:15 | NUR ---
Patient in room [facility] 359. I have received report from Nayana YIP and had the opportunity to ask questions and assume patient care.
--- NOTE | 2019-02-17 18:59 | NUR ---
Problems reprioritized. Patient report given, questions answered & plan of care reviewed with Cristina YIP.
[2019-02-17 19:00] VITALS: BP 155/78
[2019-02-17] MEDS ORDERED: [UNRECOGNIZED DRUG - REMARK] IV ONE ×2 (20:00)
[2019-02-17] MEDS ORDERED: fat emulsion IV bag 250 ML IV ONE (20:00)
[2019-02-17] MEDS: atorvastatin 10mg tablet PO SCH (22:04)
[2019-02-17 22:06] LABS: ALANINE AMINOTRANSFERASE 7 U/L (12-78); ALBUMIN 1.7 G/DL (3.4-5.0); ALBUMIN/GLOBULIN RATIO 0.4 (1.1-1.5); ALKALINE PHOSPHATASE 110 IU/L (46-116); ANION GAP 14 (8-16); ASPARTATE AMINO TRANSFERASE 20 U/L (10-37); BILIRUBIN,TOTAL 0.4 MG/DL (0.1-1.0); BLOOD UREA NITROGEN 10 MG/DL (7-18); BUN/CREATININE RATIO 9.9 (6.6-38.0); CHLORIDE 97 MMOL/L (99-107); CREATININE 1.01 MG/DL (0.40-0.90); GLUCOSE 74 MG/DL (70-104); PHOSPHORUS 2.1 MG/DL (2.3-4.5); PREALBUMIN 8.3 MG/DL (19-36); SODIUM 133 MMOL/L (135-145); TOTAL CARBON DIOXIDE 22.3 MMOL/L (24-32); TOTAL PROTEIN 6.1 G/DL (6.4-8.2); TRIGLYCERIDES 133 MG/DL (20-135); eGFR 52 ML/MIN
[2019-02-17 22:09] LABS: POTASSIUM 3.5 MMOL/L (3.5-5.1)
[2019-02-18] VITALS: BP 118/61
[2019-02-18] MEDS: piperacillin/tazo 4.5gm/100ml 100 ML IV SCH ×2 (00:25→07:41)
[2019-02-18] MEDS: zolpidem 5mg tablet PO PRN ×2 (01:11→23:37)
[2019-02-18] MEDS: diltiazem 30mg tablet PO SCH ×4 (01:19→21:56)
[2019-02-18 01:20] VITALS: BP 142/75
[2019-02-18] MEDS: CALCIUM IV SCH (03:35)
[2019-02-18] MEDS: LYTES IV SCH (03:35)
[2019-02-18] MEDS: [UNRECOGNIZED DRUG - OTHER] IV SCH (03:35)
[2019-02-18] MEDS: DEXT IV SCH (03:35)
[2019-02-18] MEDS: TRACE ELEMENT IV SCH (03:35)
[2019-02-18 05:50] LABS: BASOPHILS % (AUTO) 0.2 % (0-1); EOSINOPHILS # (AUTO) 0.1 X10'3 (0-0.9); EOSINOPHILS % (AUTO) 1.1 % (0-6); HEMATOCRIT 38.9 % (35.0-45.0); HEMOGLOBIN 13.1 g/dl (12.0-16.0); LYMPHOCYTES # (AUTO) 0.7 X10'3 (1.1-4.8); MEAN CORPUSCULAR HEMOGLOBIN 29.3 PG (27.0-31.0); MEAN CORPUSCULAR HGB CONC 33.8 g/dL (33.0-36.5); MEAN CORPUSCULAR VOLUME 86.7 FL (78-98); MEAN PLATELET VOLUME 7.6 FL (7.4-10.4); MONOCYTES # (AUTO) 0.8 X10'3 (0-0.9); MONOCYTES % (AUTO) 7.6 % (2-12); NEUTROPHILS # (AUTO) 9.3 X10'3 (1.8-7.7); NEUTROPHILS % (AUTO) 85.1 % (42-75); PLATELET COUNT 487 X10'3 (140-440); RED BLOOD COUNT 4.48 X10'6 (4.20-5.60); RED CELL DISTRIBUTION WIDTH 14.9 % (11.5-14.5)
[2019-02-18 06:04] LABS: ALANINE AMINOTRANSFERASE 8 U/L (12-78); ALBUMIN 1.7 G/DL (3.4-5.0); ALBUMIN/GLOBULIN RATIO 0.4 (1.1-1.5); ALKALINE PHOSPHATASE 102 IU/L (46-116); ANION GAP 7 (8-16); ASPARTATE AMINO TRANSFERASE 16 U/L (10-37); BILIRUBIN,TOTAL 0.3 MG/DL (0.1-1.0); BLOOD UREA NITROGEN 8 MG/DL (7-18); BUN/CREATININE RATIO 8.2 (6.6-38.0); CALCIUM 7.5 MG/DL (8.5-10.1); CHLORIDE 99 MMOL/L (99-107); CREATININE 0.97 MG/DL (0.40-0.90); GLUCOSE 133 MG/DL (70-104); MAGNESIUM 1.9 MG/DL (1.5-2.4); PHOSPHORUS 1.9 MG/DL (2.3-4.5); POTASSIUM 3.1 MMOL/L (3.5-5.1); SODIUM 132 MMOL/L (135-145); TOTAL CARBON DIOXIDE 25.9 MMOL/L (24-32); eGFR 55 ML/MIN
--- NOTE | 2019-02-18 06:24 | NUR ---
Problems reprioritized. Patient report given, questions answered & plan of care reviewed with Nayana YIP.
--- NOTE | 2019-02-18 06:56 | NUR ---
Patient in room [facility] 359. I have received report from Cristina YIP and had the opportunity to ask questions and assume patient care.
[2019-02-18 07:38] VITALS: BP 148/84
[2019-02-18] MEDS: pantoprazole 40mg Tablet.DR PO SCH (07:44)
[2019-02-18] MEDS: metoprolol tartrate 50mg tablet PO SCH ×2 (07:44→21:56)
[2019-02-18] MEDS: lactobacillus rhamnosus 10,000 MMU CELLS/CAPSULE PO SCH ×2 (07:44→20:00)
[2019-02-18] MEDS: enoxaparin 80mg/0.8ml syringe SUBCUT SCH (07:45)
--- NOTE | 2019-02-18 09:28 | NUR ---
Spoke with Raya Lining Folder regarding refeeding syndrome with K of 3.1 and phos of 1.9, per Lining Folder stating to keep TPN rate at 30ml/hr until K and Phos have normalized and to replace electrolytes per protocol.
[2019-02-18] MEDS: potassium CL 10mEq/100ml bag 100 ML IV PRN ×4 (11:54→16:11)
[2019-02-18 12:29] VITALS: BP 125/50
[2019-02-18] MEDS ORDERED: sodium phosphate in D5W IVPB 250 ML IV ONE (13:00)
[2019-02-18] MEDS: [UNRECOGNIZED DRUG - REMARK] IV SCH ×2 (15:10)
[2019-02-18] MEDS: fat emulsion IV bag 250 ML IV SCH (15:11)
--- NOTE | 2019-02-18 15:38 | NUR ---
CDiff test ordered, and specimen sent to lab. anuel Elam, requested Dr. Sal Orozco/Arnoldo Cummings be consulted prior to testing per protocol. [facility] [employer] and Dr. Dennis notified. Dr. Dennis stated she informed Dr. Sal Orozco of the pt and stated he will be available to see pt 02/19, or lab may call him as needed. [facility] [employer],Marialuisa Villatoro, and PHI Kraus notified.
[2019-02-18] MEDS ORDERED: cefepime 2gm inj IV SCH (16:00)
[2019-02-18] MEDS: CEFEPIME 2 GM in NS 100ml IV.SOLN 100 ML IV SCH (16:06)
--- NOTE | 2019-02-18 18:30 | NUR ---
Patient in room [facility] 359. I have received report from Nayana YIP and had the opportunity to ask questions and assume patient care.
--- NOTE | 2019-02-18 18:40 | NUR ---
Problems reprioritized. Patient report given, questions answered & plan of care reviewed with Cristina YIP.
[2019-02-18 19:00] VITALS: BP 141/86
[2019-02-18] MEDS: atorvastatin 10mg tablet PO SCH (21:56)
[2019-02-19] VITALS: BP_SYST 128; BP_SYST 141; BP_DIAS 73; BP_DIAS 86
[2019-02-19 01:52] LABS: POTASSIUM 3.2 MMOL/L (3.5-5.1)
[2019-02-19 02:30] VITALS: BP 154/74
[2019-02-19] MEDS: diltiazem 30mg tablet PO SCH ×4 (02:31→19:25)
[2019-02-19] MEDS: CALCIUM IV SCH (02:53)
[2019-02-19] MEDS: LYTES IV SCH (02:53)
[2019-02-19] MEDS: TRACE ELEMENT IV SCH (02:53)
[2019-02-19] MEDS: [UNRECOGNIZED DRUG - OTHER] IV SCH (02:53)
[2019-02-19] MEDS: DEXT IV SCH (02:53)
[2019-02-19] MEDS: potassium CL 10mEq/100ml bag 100 ML IV PRN ×4 (03:09→08:08)
[2019-02-19 06:32] LABS: ALANINE AMINOTRANSFERASE 12 U/L (12-78); ALBUMIN 1.7 G/DL (3.4-5.0); ALBUMIN/GLOBULIN RATIO 0.4 (1.1-1.5); ALKALINE PHOSPHATASE 85 IU/L (46-116); ANION GAP 9 (8-16); ASPARTATE AMINO TRANSFERASE 19 U/L (10-37); BILIRUBIN,TOTAL 0.2 MG/DL (0.1-1.0); BLOOD UREA NITROGEN 8 MG/DL (7-18); BUN/CREATININE RATIO 9.5 (6.6-38.0); CALCIUM 7.5 MG/DL (8.5-10.1); CHLORIDE 100 MMOL/L (99-107); CREATININE 0.84 MG/DL (0.40-0.90); GLUCOSE 125 MG/DL (70-104); SODIUM 134 MMOL/L (135-145); TOTAL PROTEIN 5.7 G/DL (6.4-8.2); eGFR 65 ML/MIN
[2019-02-19 06:35] LABS: PHOSPHORUS 1.8 MG/DL (2.3-4.5)
[2019-02-19 07:00] VITALS: BP 123/59
--- NOTE | 2019-02-19 07:22 | NUR ---
Problems reprioritized. Patient report given, questions answered & plan of care reviewed with Lucy YIP.
[2019-02-19] MEDS: CEFEPIME 2 GM in NS 100ml IV.SOLN 100 ML IV SCH ×2 (08:08)
[2019-02-19] MEDS: metoprolol tartrate 50mg tablet PO SCH ×2 (08:09→19:22)
[2019-02-19] MEDS: lactobacillus rhamnosus 10,000 MMU CELLS/CAPSULE PO SCH ×2 (08:09→19:26)
[2019-02-19] MEDS: pantoprazole 40mg Tablet.DR PO SCH (08:09)
[2019-02-19] MEDS: enoxaparin 80mg/0.8ml syringe SUBCUT SCH (08:19)
--- NOTE | 2019-02-19 12:18 | NUR ---
Reassessment: Pt with new onset A.fib and abscess cultures growing Pseudomonas, pt on IV abx per MD notes. Pt continues with clear liquid diet with documented 0-25% PO intake and TPN remains at 30 mL/hr d/t decreased electrolytes; pt receiving electrolyte replacement. Documented weight fluctuates however stable overall. LBM 7/5, documented as diarrhea. Per MD notes diarrhea likely abx associated, to check for C.diff. Will continue to follow. TPN consult. Patient is on clear liquid diet after draining of diverticular abscess. Patient has not had adequate nutrition for 9 days. Currently not tolerating clear liquids, patient also has achalasia and per patient she gets dilation often. Patient may ultimately be a candidate for a PEG for nutrition in the future if achalasia is preventing from adequate PO intake, likely does not need a PEG this visit. discussed above with MD and RN. . Pt may be candidate for TPN via PICC line. Pt also has achalasia needing dilation often, may also be candidate for PEG eventually. Patient is pending PICC placement, TPN recs below, d/w pharmacy. Will continue to follow. Recommend: 1. 2:1 TPN per PICC using Clinimix E 5/20 at 80 ml/hr will provide total volume 1920 ml, 96 g protein, 384 g dextrose, 2.75 mg/kg/min CHO loading. 2. Separate lipids using a total of 252 ml 20% intralipids to run for 12 hours at 21 ml/hr will provide 50 g lipids. 3. TPN and lipids will provide 1806 total non protein calories, 2190 total cals 4. Advance diet as medically indicated to low fiber/low residue 5. continue ensure clear 6. Electrolyte replacement PRN Addendum: 02/19/19 at [address] Amended: Links added.
[2019-02-19] MEDS ORDERED: potassium phosphate inj 30 MMOL in normal saline 500ml IV soln 490 ML IV ONE (12:45)
[2019-02-19 12:50] LABS: BASOPHILS % (AUTO) 0.2 % (0-1); EOSINOPHILS # (AUTO) 0.1 X10'3 (0-0.9); EOSINOPHILS % (AUTO) 1.1 % (0-6); HEMATOCRIT 38.7 % (35.0-45.0); HEMOGLOBIN 12.8 g/dl (12.0-16.0); LYMPHOCYTES % (AUTO) 9.2 % (21-51); MEAN CORPUSCULAR HEMOGLOBIN 28.8 PG (27.0-31.0); MEAN CORPUSCULAR HGB CONC 33.1 g/dL (33.0-36.5); MEAN PLATELET VOLUME 7.6 FL (7.4-10.4); MONOCYTES % (AUTO) 9.2 % (2-12); NEUTROPHILS % (AUTO) 80.3 % (42-75); PLATELET COUNT 458 X10'3 (140-440); RED BLOOD COUNT 4.45 X10'6 (4.20-5.60); RED CELL DISTRIBUTION WIDTH 14.9 % (11.5-14.5); WHITE BLOOD COUNT 11.2 X10'3 (4.5-11.0)
[2019-02-19 13:01] LABS: ALBUMIN 1.7 G/DL (3.4-5.0); ANION GAP 6 (8-16); BLOOD UREA NITROGEN 10 MG/DL (7-18); BUN/CREATININE RATIO 13.7 (6.6-38.0); CALCIUM 7.4 MG/DL (8.5-10.1); CHLORIDE 100 MMOL/L (99-107); CREATININE 0.73 MG/DL (0.40-0.90); GLUCOSE 140 MG/DL (70-104); PHOSPHORUS 1.7 MG/DL (2.3-4.5); POTASSIUM 3.6 MMOL/L (3.5-5.1); SODIUM 132 MMOL/L (135-145); TOTAL CARBON DIOXIDE 25.7 MMOL/L (24-32); eGFR 76 ML/MIN
[2019-02-19 14:15] VITALS: BP 126/81
[2019-02-19] MEDS: [UNRECOGNIZED DRUG - REMARK] IV SCH ×2 (15:20)
[2019-02-19] MEDS: fat emulsion IV bag 250 ML IV SCH (15:20)
[2019-02-19 18:00] VITALS: BP 121/88
--- NOTE | 2019-02-19 18:27 | NUR ---
Problems reprioritized. Patient report given, questions answered & plan of care reviewed with CINDY YIP .
--- NOTE | 2019-02-19 18:28 | NUR ---
Patient in room [facility] 359. I have received report from PHI Ayala and had the opportunity to ask questions and assume patient care.
[2019-02-19] MEDS: metroNIDAZOLE-Flagyl 500mg/NS 100 ML IV SCH (19:12)
[2019-02-19] MEDS: atorvastatin 10mg tablet PO SCH (20:17)
[2019-02-19] MEDS: cefepime 2g/NS 100ml ADVANTAGE 100 ML IV SCH (20:31)
[2019-02-19] MEDS: zolpidem 5mg tablet PO PRN (23:24)
[2019-02-20] VITALS (9 sets, daily range): BP systolic 107–160; BP diastolic 55–80
--- NOTE | 2019-02-20 02:40 | NUR ---
Problems reprioritized. Patient report given, questions answered & plan of care reviewed with PHI Ford.
--- NOTE | 2019-02-20 02:40 | NUR ---
I have accepted the care of this patient from Rian YIP. Pt is asleep in room 359B, resting comfortably, breathing even and unlabored
[2019-02-20] MEDS: diltiazem 30mg tablet PO SCH ×4 (03:04→16:46)
[2019-02-20] MEDS: DEXT IV SCH (03:04)
[2019-02-20] MEDS: CALCIUM IV SCH (03:04)
[2019-02-20] MEDS: [UNRECOGNIZED DRUG - OTHER] IV SCH (03:04)
[2019-02-20] MEDS: TRACE ELEMENT IV SCH (03:04)
[2019-02-20] MEDS: LYTES IV SCH (03:04)
[2019-02-20 03:28] LABS: ALBUMIN 1.6 G/DL (3.4-5.0); ANION GAP 6 (8-16); BLOOD UREA NITROGEN 9 MG/DL (7-18); BUN/CREATININE RATIO 13.2 (6.6-38.0); CALCIUM 7.8 MG/DL (8.5-10.1); CHLORIDE 102 MMOL/L (99-107); CREATININE 0.68 MG/DL (0.40-0.90); GLUCOSE 114 MG/DL (70-104); POTASSIUM 3.6 MMOL/L (3.5-5.1); SODIUM 135 MMOL/L (135-145); TOTAL CARBON DIOXIDE 27.3 MMOL/L (24-32); eGFR 83 ML/MIN
[2019-02-20 03:33] LABS: BASOPHILS % (AUTO) 0.2 % (0-1); EOSINOPHILS # (AUTO) 0.2 X10'3 (0-0.9); EOSINOPHILS % (AUTO) 1.7 % (0-6); HEMOGLOBIN 11.8 g/dl (12.0-16.0); LYMPHOCYTES # (AUTO) 0.8 X10'3 (1.1-4.8); LYMPHOCYTES % (AUTO) 8.2 % (21-51); MEAN CORPUSCULAR HEMOGLOBIN 28.8 PG (27.0-31.0); MEAN CORPUSCULAR HGB CONC 32.8 g/dL (33.0-36.5); MEAN CORPUSCULAR VOLUME 87.7 FL (78-98); MEAN PLATELET VOLUME 7.5 FL (7.4-10.4); NEUTROPHILS # (AUTO) 7.8 X10'3 (1.8-7.7); NEUTROPHILS % (AUTO) 79.9 % (42-75); PLATELET COUNT 431 X10'3 (140-440); RED BLOOD COUNT 4.11 X10'6 (4.20-5.60); RED CELL DISTRIBUTION WIDTH 14.8 % (11.5-14.5); WHITE BLOOD COUNT 9.8 X10'3 (4.5-11.0)
--- NOTE | 2019-02-20 05:55 | NUR ---
RECEIVED REPORT FROM EMMANUELLE YIP
--- NOTE | 2019-02-20 06:13 | NUR ---
Problems reprioritized. Patient report given, questions answered & plan of care reviewed with Mercedez YIP.
[2019-02-20] MEDS: lactobacillus rhamnosus 10,000 MMU CELLS/CAPSULE PO SCH ×2 (08:32→08:33)
[2019-02-20] MEDS: enoxaparin 80mg/0.8ml syringe SUBCUT SCH (08:32)
[2019-02-20] MEDS: cefepime 2g/NS 100ml ADVANTAGE 100 ML IV SCH ×2 (08:32→20:29)
[2019-02-20] MEDS: metoprolol tartrate 50mg tablet PO SCH ×2 (08:33→20:28)
[2019-02-20] MEDS: metroNIDAZOLE-Flagyl 500mg/NS 100 ML IV SCH ×2 (08:33→21:02)
[2019-02-20] MEDS: pantoprazole 40mg Tablet.DR PO SCH (08:36)
--- NOTE | 2019-02-20 10:48 | NUR ---
PHARMACY CALLED AT [facility]. PUT PT AT GOAL RATE OF 80 ON HER TPN
--- NOTE | 2019-02-20 11:50 | NUR ---
DR KENYON ORDERED TPN TO BE DC'D, I EXPLAINED THAT PT IS NOT ABLE TO EAT MUCH AT ALL, BUT HE STATES SHE NEEDS TO EAT FOOD TO BE ABLE TO GO HOME. I CALLED PHARMACY AND DC'D THAT ORDER PER HOSPITALIST
--- NOTE | 2019-02-20 12:21 | NUR ---
EDUCATED PT ON IS AND EATING IN HER CHAIR. SHE IS AGREEABLE
[2019-02-20] MEDS ORDERED: fentaNYL/PF 50MCG/1 ML 2ML syringe ONE (14:01)
[2019-02-20] MEDS ORDERED: MIDAZolam 5mg/5ml vial ONE (14:02)
[2019-02-20] MEDS ORDERED: LIDOcaine Viscous 15ml cup ONE (14:02)
[2019-02-20] MEDS ORDERED: hyoscyamine 0.125mg TAB.SUBL SL PRN (15:50)
--- NOTE | 2019-02-20 15:53 | NUR ---
PT IS BACK FROM GI: PER DR HENNESSY ORDERS FOLLOWS: 1. CLEAR LIQUID DIET ADV TOLERATED TO SOFT DIET 2. PROTONIX 40MG IVP 1/2 HOUR BEFORE AC (BEFORE MEALS) BID X 3 DAYS THEN CONVERT TO PO 3. LEVSIN 0.125MG SL Q4H PRN FOR ESOPHAGEAL SPASM
[2019-02-20] MEDS: ondansetron/PF 4mg/2ml inj IV PRN (16:29)
[2019-02-20] MEDS: ESOMEPRAZOLE 40 MG VIAL IV SCH (17:37)
--- NOTE | 2019-02-20 18:00 | NUR ---
GAVE REPORT TO CINDY YIP
--- NOTE | 2019-02-20 18:10 | NUR ---
Patient in room [facility] 359. I have received report from PHI Newsome and had the opportunity to ask questions and assume patient care.
[2019-02-20] MEDS: atorvastatin 10mg tablet PO SCH (20:28)
[2019-02-21] VITALS: BP 95/70
[2019-02-21 02:20] VITALS: BP 153/69
[2019-02-21] MEDS: diltiazem 30mg tablet PO SCH ×4 (02:23→20:31)
[2019-02-21 03:59] LABS: ALBUMIN 1.6 G/DL (3.4-5.0); ANION GAP 5 (8-16); BLOOD UREA NITROGEN 11 MG/DL (7-18); BUN/CREATININE RATIO 15.7 (6.6-38.0); CALCIUM 7.4 MG/DL (8.5-10.1); CHLORIDE 102 MMOL/L (99-107); GLUCOSE 110 MG/DL (70-104); POTASSIUM 3.4 MMOL/L (3.5-5.1); SODIUM 134 MMOL/L (135-145); TOTAL CARBON DIOXIDE 26.8 MMOL/L (24-32); eGFR 80 ML/MIN
--- NOTE | 2019-02-21 06:10 | NUR ---
Patient in room [facility] 355. I have received report from CINDY YIP and had the opportunity to ask questions and assume patient care.
--- NOTE | 2019-02-21 06:10 | NUR ---
Problems reprioritized. Patient report given, questions answered & plan of care reviewed with PHI Newsome.
[2019-02-21 07:00] VITALS: BP 136/75
[2019-02-21] MEDS: enoxaparin 80mg/0.8ml syringe SUBCUT SCH (07:20)
[2019-02-21] MEDS: metoprolol tartrate 50mg tablet PO SCH ×2 (07:26→20:32)
[2019-02-21] MEDS: ESOMEPRAZOLE 40 MG VIAL IV SCH ×2 (07:27→11:50)
[2019-02-21] MEDS: lactobacillus rhamnosus 10,000 MMU CELLS/CAPSULE PO SCH ×2 (07:27→20:31)
[2019-02-21] MEDS: cefepime 2g/NS 100ml ADVANTAGE 100 ML IV SCH ×2 (07:37→19:15)
--- NOTE | 2019-02-21 07:48 | NUR ---
TOILETED PT. SAT HER IN HER CHAIR FOR BREAKFAST. GAVE NEXIUM 30 MIN AC. RECOMMEDED TO PHYSICAL THERAPY TO EDUCATE PT ON A RISER TOILET SEAT FOR HOME. I EXPLAINED TO THE PT DANTE HELPING HER UP FROM THE LOW TOILET SEAT. WILL ALSO EDUCATE FAMILY
--- NOTE | 2019-02-21 07:57 | NUR ---
PT DID NOT HAVE BLUE STERYL CAPS ON PICC LINE PORTS. CLEANED EACH PORT WITH ALCOHOL WIPES AND FLUSHED. STARTED IV ABX ON BOTH PORTS. WILL PLACE STERYL CAPS ON EACH PORT AND IBX IS FINISHED
[2019-02-21] MEDS: metroNIDAZOLE-Flagyl 500mg/NS 100 ML IV SCH ×2 (08:00→20:32)
--- NOTE | 2019-02-21 09:42 | NUR ---
IV ABX FINISHED. FLUSHED LINE AND PUT BLUE STERYL CAPS ON PICC PORTS
[2019-02-21] MEDS ORDERED: magnesium 4gm in 100ml NS 100 ML IV PRN (16:00)
[2019-02-21] MEDS ORDERED: magnesium Cl slow-release 64mg tablet PO PRN (16:00)
[2019-02-21] MEDS ORDERED: potassium Cl 20 mEq SR tablet PO PRN (16:00)
[2019-02-21] MEDS ORDERED: potassium CL 10mEq/100ml bag 100 ML IV PRN (16:00)
[2019-02-21] MEDS: potassium Cl 20 mEq SR tablet PO PRN ×2 (16:34→20:32)
--- NOTE | 2019-02-21 17:43 | NUR ---
Problems reprioritized. Patient report given, questions answered & plan of care reviewed with ZEN Walton RN.
[2019-02-21 18:00] VITALS: BP 142/76
[2019-02-21] MEDS: atorvastatin 10mg tablet PO SCH (20:31)
[2019-02-22] VITALS: BP 136/84
[2019-02-22] MEDS: zolpidem 5mg tablet PO PRN ×2 (01:29→22:42)
[2019-02-22] MEDS: diltiazem 30mg tablet PO SCH ×4 (01:29→20:09)
[2019-02-22] MEDS: potassium Cl 20 mEq SR tablet PO PRN (01:30)
[2019-02-22 05:12] LABS: BASOPHILS % (AUTO) 0.3 % (0-1); EOSINOPHILS # (AUTO) 0.2 X10'3 (0-0.9); EOSINOPHILS % (AUTO) 1.6 % (0-6); HEMATOCRIT 34.1 % (35.0-45.0); HEMOGLOBIN 11.3 g/dl (12.0-16.0); MEAN CORPUSCULAR HEMOGLOBIN 29.3 PG (27.0-31.0); MEAN CORPUSCULAR HGB CONC 33.2 g/dL (33.0-36.5); MEAN CORPUSCULAR VOLUME 88.2 FL (78-98); MEAN PLATELET VOLUME 8.1 FL (7.4-10.4); MONOCYTES % (AUTO) 10.3 % (2-12); NEUTROPHILS # (AUTO) 7.4 X10'3 (1.8-7.7); NEUTROPHILS % (AUTO) 77.8 % (42-75); PLATELET COUNT 453 X10'3 (140-440); RED BLOOD COUNT 3.87 X10'6 (4.20-5.60); RED CELL DISTRIBUTION WIDTH 15.1 % (11.5-14.5); WHITE BLOOD COUNT 9.5 X10'3 (4.5-11.0)
--- NOTE | 2019-02-22 06:21 | NUR ---
Problems reprioritized. Patient report given, questions answered & plan of care reviewed with PHI Avilez.
[2019-02-22 06:25] LABS: ALBUMIN 1.6 G/DL (3.4-5.0); ANION GAP 7 (8-16); BLOOD UREA NITROGEN 11 MG/DL (7-18); BUN/CREATININE RATIO 15.3 (6.6-38.0); CALCIUM 7.7 MG/DL (8.5-10.1); CHLORIDE 103 MMOL/L (99-107); CREATININE 0.72 MG/DL (0.40-0.90); GLUCOSE 84 MG/DL (70-104); MAGNESIUM 1.8 MG/DL (1.5-2.4); POTASSIUM 4.3 MMOL/L (3.5-5.1); SODIUM 134 MMOL/L (135-145); TOTAL CARBON DIOXIDE 24.4 MMOL/L (24-32); eGFR 77 ML/MIN
--- NOTE | 2019-02-22 06:36 | NUR ---
Patient in room [facility] 355. I have received report from Kemi Celaya RN and had the opportunity to ask questions and assume patient care.
[2019-02-22 07:00] VITALS: BP 145/86
[2019-02-22] MEDS: lactobacillus rhamnosus 10,000 MMU CELLS/CAPSULE PO SCH ×2 (08:16→20:08)
[2019-02-22] MEDS: metoprolol tartrate 50mg tablet PO SCH ×2 (08:18→20:08)
[2019-02-22] MEDS: metroNIDAZOLE-Flagyl 500mg/NS 100 ML IV SCH ×2 (08:19→20:08)
[2019-02-22] MEDS: enoxaparin 80mg/0.8ml syringe SUBCUT SCH (08:19)
[2019-02-22] MEDS: ESOMEPRAZOLE 40 MG VIAL IV SCH ×2 (08:19→20:08)
[2019-02-22] MEDS: cefepime 2g/NS 100ml ADVANTAGE 100 ML IV SCH ×2 (09:30→19:28)
--- NOTE | 2019-02-22 10:14 | NUR ---
Patient wants to wait until antibiotic is complete before going for her walk
[2019-02-22 11:00] VITALS: BP 146/86
--- NOTE | 2019-02-22 13:21 | NUR ---
Reassessment: Noted that patient's diet was advanced yesterday evening to mechanical soft, grind all. TPN has been stopped. Pt with PO intake if fair, 50% average of two meals so far. She is s/p EGD with dilation. No GI symptoms today. Documented weight fluctuates however stable overall. LBM 78. Will continue to follow.. Recommend: 1. continue mechanical soft diet, grind all 2. honor food preferences 3. wt per rx Addendum: 02/22/19 at [address] Amended: Links added.
[2019-02-22 14:15] VITALS: BP 133/72
--- NOTE | 2019-02-22 18:36 | NUR ---
Patients Daughter Kaitlin will be taking patients toilet seat riser home with her tonight.
--- NOTE | 2019-02-22 18:37 | NUR ---
Problems reprioritized. Patient report given, questions answered & plan of care reviewed with Kemi Celaya RN.
[2019-02-22 20:00] VITALS: BP 122/75
[2019-02-22] MEDS: apixaban 2.5mg tablet PO SCH (20:09)
[2019-02-22] MEDS: atorvastatin 10mg tablet PO SCH (20:09)
[2019-02-23] VITALS: BP 136/76
[2019-02-23] MEDS: diltiazem 30mg tablet PO SCH ×2 (02:03→07:54)
[2019-02-23 05:11] LABS: BASOPHILS % (AUTO) 0.3 % (0-1); EOSINOPHILS # (AUTO) 0.1 X10'3 (0-0.9); EOSINOPHILS % (AUTO) 1.3 % (0-6); HEMATOCRIT 33.8 % (35.0-45.0); HEMOGLOBIN 11.3 g/dl (12.0-16.0); MEAN CORPUSCULAR HEMOGLOBIN 29.6 PG (27.0-31.0); MEAN CORPUSCULAR HGB CONC 33.6 g/dL (33.0-36.5); MEAN CORPUSCULAR VOLUME 88.2 FL (78-98); MEAN PLATELET VOLUME 8.3 FL (7.4-10.4); MONOCYTES % (AUTO) 9.5 % (2-12); NEUTROPHILS # (AUTO) 8.7 X10'3 (1.8-7.7); NEUTROPHILS % (AUTO) 79.9 % (42-75); PLATELET COUNT 457 X10'3 (140-440); RED BLOOD COUNT 3.83 X10'6 (4.20-5.60); RED CELL DISTRIBUTION WIDTH 15.2 % (11.5-14.5); WHITE BLOOD COUNT 10.9 X10'3 (4.5-11.0)
[2019-02-23 05:18] LABS: ALBUMIN 1.7 G/DL (3.4-5.0); ANION GAP 8 (8-16); BLOOD UREA NITROGEN 11 MG/DL (7-18); BUN/CREATININE RATIO 15.3 (6.6-38.0); CALCIUM 7.5 MG/DL (8.5-10.1); CHLORIDE 102 MMOL/L (99-107); CREATININE 0.72 MG/DL (0.40-0.90); GLUCOSE 85 MG/DL (70-104); POTASSIUM 3.8 MMOL/L (3.5-5.1); SODIUM 134 MMOL/L (135-145); TOTAL CARBON DIOXIDE 23.6 MMOL/L (24-32); eGFR 77 ML/MIN
--- NOTE | 2019-02-23 06:44 | NUR ---
Problems reprioritized. Patient report given, questions answered & plan of care reviewed with PHI Beckman.
--- NOTE | 2019-02-23 06:54 | NUR ---
Patient in room [facility] 355. I have received report from Kemi YIP and had the opportunity to ask questions and assume patient care.
[2019-02-23 07:21] VITALS: BP 109/64
[2019-02-23] MEDS: metroNIDAZOLE-Flagyl 500mg/NS 100 ML IV SCH (07:53)
[2019-02-23] MEDS: lactobacillus rhamnosus 10,000 MMU CELLS/CAPSULE PO SCH (07:53)
[2019-02-23] MEDS: apixaban 2.5mg tablet PO SCH (07:53)
[2019-02-23] MEDS: metoprolol tartrate 50mg tablet PO SCH (07:54)
[2019-02-23] MEDS ORDERED: furosemide 20MG tablet PO SCH (08:00)
[2019-02-23] MEDS: ESOMEPRAZOLE 40 MG VIAL IV SCH (08:04)
[2019-02-23] MEDS: cefepime 2g/NS 100ml ADVANTAGE 100 ML IV SCH (09:08)
[2019-02-23 11:00] VITALS: BP 120/70
--- NOTE | 2019-02-23 11:42 | NUR ---
Bilateral drains removed by Prashanth MEJIA . patient tolerated procedure.
[2019-02-23] MEDS ORDERED: FURO-150 PO (14:23)
[2019-02-23] MEDS ORDERED: LISI-604 PO (14:23)
[2019-02-23] MEDS ORDERED: CARSR60C PO (14:23)
[2019-02-23] MEDS ORDERED: LACT1CAP26 PO (14:23)
[2019-02-23] MEDS ORDERED: APIX5TAB3 PO (14:23)
--- NOTE | 2019-02-23 15:45 | NUR ---
patient is for DC following drain removal. All DC instructions and meds explained to patient and son. meds [facility] [address]. patient appeared stable for DC. Dc home via private car with son to home in stable condition.
[2019-02-23] MEDS ORDERED: pantoprazole 40mg Tablet.DR PO SCH (20:00)
--- NOTE | 2019-02-25 12:16 | NUR ---
Jessica with [facility] pharmacy called due to patient thought they would be getting Lasix on discharge. Patient did think she had some at home but when she got home she did not. I spoke to Dr Tabor who wanted patient to receive an Rx for Lasix 20mg PO BID Prn for edema and shortness of breath #60 with no refills. Rx was called into Jessica with [facility] by Banquet Set Up Person Lakesha.
== END 2019-02-23 15:42 | disposition home or self-care (01) | DRG 872 ==
LOC: ER 01:03 → SUR 3N 06:43 → CMPBEDREQ 02-08 19:53 → SUR 3N 02-21 06:05
PROVIDERS: ADMIT Internal Medicine; ATTEND Hospitalist
PROC: BW211ZZ Computerized Tomography (CT Scan) of Abdomen and Pelvis using Low Osmolar Contrast (ICD-10-PCS; 2019-02-10)
PROC: 0W9J30Z Drainage of Pelvic Cavity with Drainage Device, Percutaneous Approach (ICD-10-PCS; 2019-02-11)
PROC: 0W9G30Z Drainage of Peritoneal Cavity with Drainage Device, Percutaneous Approach (ICD-10-PCS; 2019-02-15)
PROC: 02HV33Z Insertion of Infusion Device into Superior Vena Cava, Percutaneous Approach (ICD-10-PCS; 2019-02-17)
PROC: 4A02X4A Measurement of Cardiac Electrical Activity, Guidance, External Approach (ICD-10-PCS; 2019-02-17)
PROC: B548ZZA Ultrasonography of Superior Vena Cava, Guidance (ICD-10-PCS; 2019-02-17)
PROC: 0D748ZZ Dilation of Esophagogastric Junction, Via Natural or Artificial Opening Endoscopic (ICD-10-PCS; principal; 2019-02-20)
PROC: 0DC58ZZ Extirpation of Matter from Esophagus, Via Natural or Artificial Opening Endoscopic (ICD-10-PCS; 2019-02-20)
DX: A41.9 Sepsis, unspecified organism (principal); K57.20 Diverticulitis of large intestine with perforation and abscess without bleeding; N17.9 Acute kidney failure, unspecified; E87.1 Hypo-osmolality and hyponatremia; N39.0 Urinary tract infection, site not specified; N18.9 Chronic kidney disease, unspecified; B95.2 Enterococcus as the cause of diseases classified elsewhere; E78.5 Hyperlipidemia, unspecified; E83.39 Other disorders of phosphorus metabolism; E87.6 Hypokalemia; I48.91 Unspecified atrial fibrillation; K21.0 Gastro-esophageal reflux disease with esophagitis; K22.2 Esophageal obstruction; T18.108A Unspecified foreign body in esophagus causing other injury, initial encounter; K22.8 Other specified diseases of esophagus; I12.9 Hypertensive chronic kidney disease with stage 1 through stage 4 chronic kidney disease, or unspecified chronic kidney disease; K29.70 Gastritis, unspecified, without bleeding; Z82.49 Family history of ischemic heart disease and other diseases of the circulatory system; E87.70 Fluid overload, unspecified; K31.7 Polyp of stomach and duodenum; B96.5 Pseudomonas (aeruginosa) (mallei) (pseudomallei) as the cause of diseases classified elsewhere; K44.9 Diaphragmatic hernia without obstruction or gangrene; X58.XXXA Exposure to other specified factors, initial encounter; R00.1 Bradycardia, unspecified; K59.00 Constipation, unspecified; Z90.710 Acquired absence of both cervix and uterus; Z88.6 Allergy status to analgesic agent; Z87.891 Personal history of nicotine dependence; Y93.89 Activity, other specified; Y92.89 Other specified places as the place of occurrence of the external cause; Y99.8 Other external cause status; E87.5 Hyperkalemia
CPT/HCPCS: 36415; 36569; 43249; 49406; 71045; 74176; 74177; 76937; 80048; 80053; 81001; 82948; 83605; 83690; 83735; 83880; 84100; 84132; 84134; 84439; 84443; 84478; 85025; 85610; 87040; 87070; 87075; 87077; 87081; 87088; 87186; 93005; 96361; 96365; 96375; 97110; 97116; 97161; 97530; 97535; 99152; 99153; 99285; A4620; C1726; G0378; J0692; J1170; J1650; J1940; J2212; J2250; J2270; J2405; J2543; J3010; J3480; J3490; J7030; J7040; J7042; Q9963; Q9967

== ENCOUNTER 2019-09-07 17:29 | Emergency (ER) | payer MEDICARE ==
[~2019-09-07] VITALS: Ht 162.6 cm; Wt 73.2 kg
[~2019-09-07 17:29] MED LIST: APIX5TAB3 PO; FURO-150 PO; LACT1CAP26 PO; LISI-604 PO; METO1TAB25 PO; OMEP40CA13 PO; SIMV-42 PO; ZOLP5TAB8 PO
[2019-09-07] MEDS ORDERED: normal saline 1000ML IV soln IVB ONE (19:55)
[2019-09-07] MEDS ORDERED: pantoprazole 40 MG vial IV ONE (19:55)
[2019-09-07] MEDS ORDERED: PANT40TA4 PO (20:26)
[2019-09-07] MEDS ORDERED: METO50TA17 PO ×2 (20:26→20:34)
[2019-09-07] MEDS ORDERED: FURO-150 PO (20:26)
[2019-09-07] MEDS ORDERED: POTA-82 PO (20:28)
[2019-09-07 20:49] LABS: BASOPHILS # (AUTO) 0.1 X10'3 (0-0.2); BASOPHILS % (AUTO) 0.7 % (0-1); EOSINOPHILS % (AUTO) 0.5 % (0-6); HEMATOCRIT 23.9 % (35.0-45.0); HEMOGLOBIN 7.6 g/dl (12.0-16.0); LYMPHOCYTES # (AUTO) 1.5 X10'3 (1.1-4.8); LYMPHOCYTES % (AUTO) 21.5 % (21-51); MEAN CORPUSCULAR HGB CONC 31.6 g/dL (33.0-36.5); MEAN CORPUSCULAR VOLUME 69.6 FL (78-98); MEAN PLATELET VOLUME 8.2 FL (7.4-10.4); MONOCYTES # (AUTO) 0.7 X10'3 (0-0.9); MONOCYTES % (AUTO) 9.7 % (2-12); NEUTROPHILS # (AUTO) 4.9 X10'3 (1.8-7.7); NEUTROPHILS % (AUTO) 67.6 % (42-75); PLATELET COUNT 351 X10'3 (140-440); RED BLOOD COUNT 3.43 X10'6 (4.20-5.60); RED CELL DISTRIBUTION WIDTH 20.8 % (11.5-14.5); WHITE BLOOD COUNT 7.2 X10'3 (4.5-11.0)
[2019-09-07 21:04] LABS: ALANINE AMINOTRANSFERASE 20 U/L (12-78); ALBUMIN 3.6 G/DL (3.4-5.0); ALKALINE PHOSPHATASE 112 IU/L (46-116); ANION GAP 12 (8-16); ASPARTATE AMINO TRANSFERASE 21 U/L (10-37); BLOOD UREA NITROGEN 23 MG/DL (7-18); BUN/CREATININE RATIO 18.5 (6.6-38.0); CALCIUM 8.6 MG/DL (8.5-10.1); CHLORIDE 103 MMOL/L (99-107); CREATININE 1.24 MG/DL (0.40-0.90); GLUCOSE 92 MG/DL (70-104); POTASSIUM 4.2 MMOL/L (3.5-5.1); SODIUM 138 MMOL/L (135-145); TOTAL CARBON DIOXIDE 23.3 MMOL/L (24-32); TOTAL PROTEIN 7.3 G/DL (6.4-8.2); eGFR 41 ML/MIN
[2019-09-07 21:05] LABS: LIPASE 162 U/L (73-393)
[2019-09-07 22:15] VITALS: BP 153/77
[2019-09-07 22:34] LABS: ANISOCYTOSIS 3+; MICROCYTOSIS 2+; PLATELET ESTIMATE NORMAL
[2019-09-07 22:35] LABS: HYPOCHROMASIA 2+; SPHEROCYTES FEW
== END 2019-09-07 22:22 | disposition home or self-care (01) ==
LOC: ER 17:29
DX: D64.9 Anemia, unspecified (principal); I48.91 Unspecified atrial fibrillation; Z90.710 Acquired absence of both cervix and uterus; Z87.891 Personal history of nicotine dependence; Z88.5 Allergy status to narcotic agent; Z79.01 Long term (current) use of anticoagulants; Z79.899 Other long term (current) drug therapy
CPT/HCPCS: 36415; 80053; 83690; 84484; 85025; 93005; 96361; 96374; 99284; C9113; J7030

== ENCOUNTER 2019-10-07 19:46 | Inpatient (IN) | payer MEDICARE ==
[~2019-10-07] VITALS: Ht 162.6 cm; Wt 73.0 kg
[~2019-10-07 19:46] MED LIST changes: -LACT1CAP26 PO; -LISI-604 PO; -METO1TAB25 PO; +METO50TA17 PO; -OMEP40CA13 PO; +PANT40TA4 PO; +POTA-82 PO
[2019-10-07 20:25] LABS: BASOPHILS % (AUTO) 0.8 % (0-1); EOSINOPHILS # (AUTO) 0.1 X10'3 (0-0.9); EOSINOPHILS % (AUTO) 1.6 % (0-6); HEMATOCRIT 22.4 % (35.0-45.0); HEMOGLOBIN 7.1 g/dl (12.0-16.0); LYMPHOCYTES # (AUTO) 0.7 X10'3 (1.1-4.8); LYMPHOCYTES % (AUTO) 13.4 % (21-51); MEAN CORPUSCULAR HGB CONC 31.9 g/dL (33.0-36.5); MEAN CORPUSCULAR VOLUME 78.5 FL (78-98); MEAN PLATELET VOLUME 8.4 FL (7.4-10.4); MONOCYTES # (AUTO) 0.6 X10'3 (0-0.9); MONOCYTES % (AUTO) 11.6 % (2-12); NEUTROPHILS # (AUTO) 3.7 X10'3 (1.8-7.7); NEUTROPHILS % (AUTO) 72.6 % (42-75); PLATELET COUNT 323 X10'3 (140-440); RED BLOOD COUNT 2.85 X10'6 (4.20-5.60); RED CELL DISTRIBUTION WIDTH 28.4 % (11.5-14.5)
[2019-10-07 20:39] LABS: ALANINE AMINOTRANSFERASE 22 U/L (12-78); ALBUMIN 3.5 G/DL (3.4-5.0); ALKALINE PHOSPHATASE 108 IU/L (46-116); ANION GAP 9 (8-16); ASPARTATE AMINO TRANSFERASE 20 U/L (10-37); BILIRUBIN,TOTAL 0.7 MG/DL (0.1-1.0); BLOOD UREA NITROGEN 40 MG/DL (7-18); BUN/CREATININE RATIO 27.2 (6.6-38.0); CALCIUM 8.5 MG/DL (8.5-10.1); CHLORIDE 109 MMOL/L (99-107); CREATININE 1.47 MG/DL (0.40-0.90); GLUCOSE 129 MG/DL (70-104); LIPASE 295 U/L (73-393); POTASSIUM 4.2 MMOL/L (3.5-5.1); SODIUM 142 MMOL/L (135-145); TOTAL CARBON DIOXIDE 24.3 MMOL/L (24-32); TOTAL PROTEIN 6.9 G/DL (6.4-8.2); eGFR 34 ML/MIN
[2019-10-07 21:09] LABS: ANISOCYTOSIS 2+; PLATELET ESTIMATE NORMAL
[2019-10-07 21:10] LABS: HYPOCHROMASIA 1+; MICROCYTOSIS 1+; TARGET CELLS 1+
[2019-10-07] MEDS ORDERED: pantoprazole 40 MG vial IV ONE (21:10)
[2019-10-07] MEDS ORDERED: normal saline 1000ml 1,000 ML IV ONE (21:10)
--- NOTE | 2019-10-07 21:45 | NUR ---
HE HAS ANTIBODIES SO THE BLOOD WILL TAKE LONGER TO SCREEN, PER BLOOD BANK.
[2019-10-07] MEDS: pantoprazole 40MG/NS 100ML BAG 100 ML IV SCH (21:59)
--- NOTE | 2019-10-07 22:43 | NUR ---
I HAD THE PT UP TO THE BS COMMODE. THE DAUGHTER SAID THAT SHE PULLED OUT THE HAT FORT THE UA CATCH BECAUSE SHE WAS HAVING DIARRHEA. I WENT IN TO HELP THE PATIENT. THERE WAS ONLY A SMEAR OF STOOL ON THE WIPE. SO, THE UA IS NOT GOING TO HAPPEN.
--- NOTE | 2019-10-07 22:57 | NUR ---
blood bank called and he has a unit crossed.
[2019-10-07] MEDS ORDERED: magnesium 4gm in 100ml NS 100 ML IV PRN (23:20)
[2019-10-07] MEDS ORDERED: potassium CL 10mEq/100ml bag 100 ML IV PRN ×2 (23:20)
[2019-10-07] MEDS ORDERED: potassium Cl 20 mEq SR tablet PO PRN ×2 (23:20)
[2019-10-07] MEDS ORDERED: magnesium 2GM in 50ml NS 50 ML IV PRN (23:20)
[2019-10-07] MEDS ORDERED: ondansetron/PF 4mg/2ml inj IV PRN (23:20)
[2019-10-07] MEDS ORDERED: magnesium Cl slow-release 64mg tablet PO PRN (23:20)
[2019-10-07 23:24] VITALS: BP 143/62
[2019-10-07 23:42] VITALS: BP 150/56
[2019-10-08] VITALS (12 sets, daily range): BP systolic 119–155; BP diastolic 52–88
[2019-10-08 00:55] LABS: CLARITY,URINE CLEAR (Clear); COLOR,URINE YELLOW (Yellow); GLUCOSE, URINE NEGATIVE (Neg); KETONES,URINE NEGATIVE (Neg); LEUKOCYTE ESTERASE ,URINE NEGATIVE (Neg); NITRITES, URINE NEGATIVE (Neg); OCCULT BLOOD,URINE NEGATIVE (Neg); PH,URINE 5.5 (4.8-8.0); PROTEIN,URINE NEGATIVE (Neg); UROBILINOGEN,URINE 0.2 E.U/dL (0.2-1.0)
[2019-10-08 01:01] LABS: UA COLLECTION TYPE CLN CATCH MIDSTREAM
[2019-10-08] MEDS: pantoprazole 40MG/NS 100ML BAG 100 ML IV SCH ×6 (01:41→23:38)
[2019-10-08] MEDS: normal saline 1000ml 1,000 ML IV SCH ×3 (01:41→22:11)
[2019-10-08] MEDS: zolpidem 5mg tablet PO PRN ×2 (01:49→22:15)
--- NOTE | 2019-10-08 05:40 | NUR ---
Student Medication Administration: For this medication-pass time frame, all medication were reviewed, dispensed, administered and documented per hospital policy by Sofi APARICIO. Student documentation: I have reviewed and agree with all interventions, assessments performed and documented by Sofi APARICIO.
--- NOTE | 2019-10-08 06:00 | NUR ---
Patient in room PCU 3014. I have received report from Justine YIP and had the opportunity to ask questions and assume patient care.
[2019-10-08 06:22] LABS: BASOPHILS % (AUTO) 0.4 % (0-1); EOSINOPHILS # (AUTO) 0.1 X10'3 (0-0.9); EOSINOPHILS % (AUTO) 1.6 % (0-6); HEMATOCRIT 24.9 % (35.0-45.0); HEMOGLOBIN 7.9 g/dl (12.0-16.0); LYMPHOCYTES # (AUTO) 1.2 X10'3 (1.1-4.8); LYMPHOCYTES % (AUTO) 24.8 % (21-51); MEAN CORPUSCULAR HEMOGLOBIN 25.5 PG (27.0-31.0); MEAN CORPUSCULAR HGB CONC 31.7 g/dL (33.0-36.5); MEAN CORPUSCULAR VOLUME 80.5 FL (78-98); MEAN PLATELET VOLUME 8.6 FL (7.4-10.4); MONOCYTES # (AUTO) 0.6 X10'3 (0-0.9); MONOCYTES % (AUTO) 11.6 % (2-12); NEUTROPHILS % (AUTO) 61.6 % (42-75); PLATELET COUNT 285 X10'3 (140-440); RED BLOOD COUNT 3.09 X10'6 (4.20-5.60); RED CELL DISTRIBUTION WIDTH 26.1 % (11.5-14.5); WHITE BLOOD COUNT 4.8 X10'3 (4.5-11.0)
--- NOTE | 2019-10-08 06:22 | NUR ---
Problems reprioritized. Patient report given, questions answered & plan of care reviewed with Priscilla YIP.
[2019-10-08 06:25] LABS: ALBUMIN 3.1 G/DL (3.4-5.0); ANION GAP 10 (8-16); BLOOD UREA NITROGEN 37 MG/DL (7-18); BUN/CREATININE RATIO 29.4 (6.6-38.0); CALCIUM 8.1 MG/DL (8.5-10.1); CHLORIDE 112 MMOL/L (99-107); CREATININE 1.26 MG/DL (0.40-0.90); GLUCOSE 86 MG/DL (70-104); POTASSIUM 4.1 MMOL/L (3.5-5.1); SODIUM 143 MMOL/L (135-145); TOTAL CARBON DIOXIDE 21.4 MMOL/L (24-32); eGFR 41 ML/MIN
[2019-10-08 06:43] LABS: OCCULT BLOOD STOOL POSITIVE (Neg)
[2019-10-08] MEDS: K and/or MAG REPLACEMENT MC SCH ×2 (07:30→20:00)
[2019-10-08] MEDS ORDERED: atorvastatin 20mg tablet PO SCH ×3 (08:00→21:00)
[2019-10-08] MEDS ORDERED: metoprolol tartrate 50mg tablet PO SCH (08:00)
[2019-10-08 08:54] LABS: PLATELET ESTIMATE NORMAL
[2019-10-08 08:55] LABS: ANISOCYTOSIS 3+; HYPOCHROMASIA 1+; POLYCHROMASIA 1+; SCHISTOCYTES FEW
--- NOTE | 2019-10-08 09:39 | NUR ---
Called Assistant Women'S Soccer Coach [facility] office and spoke with Ghazala who confirmed that patient's metoprolol tartrate is now 100mg PO BID.
[2019-10-08] MEDS ORDERED: metoprolol tartrate 50mg tablet PO ONE (09:45)
[2019-10-08] MEDS ORDERED: fentaNYL/PF 50MCG/1 ML 2ML syringe ONE (11:21)
[2019-10-08] MEDS ORDERED: MIDAZolam 5mg/5ml vial ONE (11:21)
[2019-10-08] MEDS ORDERED: LIDOcaine Viscous 15ml cup ONE (11:21)
[2019-10-08] MEDS ORDERED: traMADol 50MG tablet PO PRN (12:25)
--- NOTE | 2019-10-08 13:08 | NUR ---
PAGER ID: [phone] MESSAGE: [phone] Aida Coats Back from colonoscopy. Can I order a diet and tray for her please? Vivienne [facility] [phone]
--- NOTE | 2019-10-08 18:19 | NUR ---
Problems reprioritized. Patient report given, questions answered & plan of care reviewed with Justine YIP.
[2019-10-08] MEDS: metoprolol tartrate 50mg tablet PO SCH (19:36)
[2019-10-09 02:00] VITALS: BP 142/60
[2019-10-09] MEDS: pantoprazole 40MG/NS 100ML BAG 100 ML IV SCH (05:02)
[2019-10-09 06:00] VITALS: BP 145/62
--- NOTE | 2019-10-09 06:00 | NUR ---
Patient in room PCU 3014. I have received report from Justine YIP and had the opportunity to ask questions and assume patient care.
--- NOTE | 2019-10-09 06:05 | NUR ---
Problems reprioritized. Patient report given, questions answered & plan of care reviewed with Priscilla YIP.
[2019-10-09 06:56] LABS: ANION GAP 13 (8-16); BASOPHILS # (AUTO) 0.1 X10'3 (0-0.2); BASOPHILS % (AUTO) 1.1 % (0-1); BLOOD UREA NITROGEN 28 MG/DL (7-18); BUN/CREATININE RATIO 25.2 (6.6-38.0); CALCIUM 8.3 MG/DL (8.5-10.1); CHLORIDE 111 MMOL/L (99-107); CREATININE 1.11 MG/DL (0.40-0.90); EOSINOPHILS # (AUTO) 0.2 X10'3 (0-0.9); EOSINOPHILS % (AUTO) 2.6 % (0-6); GLUCOSE 82 MG/DL (70-104); HEMOGLOBIN 7.9 g/dl (12.0-16.0); LYMPHOCYTES # (AUTO) 0.6 X10'3 (1.1-4.8); LYMPHOCYTES % (AUTO) 10.6 % (21-51); MAGNESIUM 1.8 MG/DL (1.5-2.4); MEAN CORPUSCULAR HEMOGLOBIN 26.5 PG (27.0-31.0); MEAN CORPUSCULAR HGB CONC 32.8 g/dL (33.0-36.5); MEAN CORPUSCULAR VOLUME 80.6 FL (78-98); MEAN PLATELET VOLUME 8.5 FL (7.4-10.4); MONOCYTES # (AUTO) 0.6 X10'3 (0-0.9); MONOCYTES % (AUTO) 10.3 % (2-12); NEUTROPHILS # (AUTO) 4.6 X10'3 (1.8-7.7); NEUTROPHILS % (AUTO) 75.4 % (42-75); PLATELET COUNT 270 X10'3 (140-440); RED BLOOD COUNT 2.98 X10'6 (4.20-5.60); RED CELL DISTRIBUTION WIDTH 26.3 % (11.5-14.5); SODIUM 144 MMOL/L (135-145); WHITE BLOOD COUNT 6.1 X10'3 (4.5-11.0); eGFR 47 ML/MIN
[2019-10-09 07:57] LABS: ANISOCYTOSIS 3+; HYPOCHROMASIA 1+; PLATELET ESTIMATE NORMAL; POLYCHROMASIA 1+; SCHISTOCYTES FEW
[2019-10-09 07:58] LABS: MICROCYTOSIS 1+; TARGET CELLS FEW
[2019-10-09] MEDS: K and/or MAG REPLACEMENT MC SCH (08:00)
[2019-10-09] MEDS: metoprolol tartrate 50mg tablet PO SCH (08:27)
[2019-10-09] MEDS ORDERED: PANT40TA4 PO (09:19)
[2019-10-09] MEDS ORDERED: FERR324T4 PO (09:19)
[2019-10-09] MEDS ORDERED: TRAM50TA2 PO (09:19)
[2019-10-09 11:00] VITALS: BP 156/71
--- NOTE | 2019-10-09 14:00 | NUR ---
Per MD orders, patient stable for discharge home. New prescriptions called in to pharmacy of preference. Discharge packet reviewed with patient and family at bedside and all questions answered to satisfaction. All belongings stayed on patient. PIV discontinued; cannula intact. Tele monitoring discontinued. Offered wheelchair transfer to private vehicle but patient refused and wanted to ambulate. Ambulated accompanied by family.
== END 2019-10-09 12:12 | disposition home or self-care (01) | DRG 378 ==
LOC: ER 19:48 → ED HOLD 23:28 → PCU 3S 10-08 00:20
PROVIDERS: ADMIT Internal Medicine; ATTEND Internal Medicine
PROC: 30233N1 Transfusion of Nonautologous Red Blood Cells into Peripheral Vein, Percutaneous Approach (ICD-10-PCS; 2019-10-07)
PROC: 0DJ08ZZ Inspection of Upper Intestinal Tract, Via Natural or Artificial Opening Endoscopic (ICD-10-PCS; principal; 2019-10-08)
DX: K25.4 Chronic or unspecified gastric ulcer with hemorrhage (principal); I48.20 Chronic atrial fibrillation, unspecified; N17.9 Acute kidney failure, unspecified; K44.9 Diaphragmatic hernia without obstruction or gangrene; K22.2 Esophageal obstruction; K29.70 Gastritis, unspecified, without bleeding; D50.0 Iron deficiency anemia secondary to blood loss (chronic); K92.1 Melena; D64.9 Anemia, unspecified; E78.5 Hyperlipidemia, unspecified; I10 Essential (primary) hypertension; Z66 Do not resuscitate; Z79.01 Long term (current) use of anticoagulants; Z90.710 Acquired absence of both cervix and uterus
CPT/HCPCS: 36415; 36430; 43235; 80048; 80053; 81003; 82272; 83690; 83735; 85025; 85610; 86870; 86885; 86900; 86901; 86902; 86905; 86922; 87081; 96374; 99152; 99285; A4620; C9113; G0378; J2250; J3010; J7030; J7040; P9016

== ENCOUNTER 2023-11-04 08:57 | Outpatient (CLI) | payer MEDICARE ==
[~2023-11-04 08:57] MED LIST changes: -APIX5TAB3 PO; +ASCO125T PO; +DULO30CA52 PO; -FURO-150 PO; +FURO40TA4 PO; +LEVO50TA8 PO; +METO-411 PO; -METO50TA17 PO; -PANT40TA4 PO; +PANT40TA54 PO; +POTA-366 PO; -POTA-82 PO; +SACU1TAB7 PO; +SPIR25TA5 PO
[2023-11-04 09:34] LABS: BASOPHILS % (AUTO) 0.6 % (0-1); EOSINOPHILS # (AUTO) 0.2 X10'3 (0-0.9); EOSINOPHILS % (AUTO) 3.5 % (0-6); HEMATOCRIT 37.3 % (35.0-45.0); HEMOGLOBIN 12.1 g/dl (12.0-16.0); LYMPHOCYTES # (AUTO) 1.1 X10'3 (1.1-4.8); LYMPHOCYTES % (AUTO) 16.8 % (21-51); MEAN CORPUSCULAR HEMOGLOBIN 26.7 PG (27.0-31.0); MEAN CORPUSCULAR HGB CONC 32.4 g/dL (33.0-36.5); MEAN CORPUSCULAR VOLUME 82.5 FL (78-98); MEAN PLATELET VOLUME 8.4 FL (7.4-10.4); MONOCYTES # (AUTO) 0.7 X10'3 (0-0.9); NEUTROPHILS # (AUTO) 4.3 X10'3 (1.8-7.7); NEUTROPHILS % (AUTO) 68.1 % (42-75); PLATELET COUNT 258 X10'3 (140-440); RED BLOOD COUNT 4.52 X10'6 (4.20-5.60); RED CELL DISTRIBUTION WIDTH 24.7 % (11.5-14.5); WHITE BLOOD COUNT 6.4 X10'3 (4.5-11.0)
[2023-11-04 09:57] LABS: ALANINE AMINOTRANSFERASE 13 U/L (12-78); ALBUMIN 3.4 G/DL (3.4-5.0); ALBUMIN/GLOBULIN RATIO 0.7 (1.1-1.5); ANION GAP 14 (8-16); ASPARTATE AMINO TRANSFERASE 20 U/L (10-37); BILIRUBIN,TOTAL 0.7 MG/DL (0.1-1.0); BLOOD UREA NITROGEN 49 MG/DL (7-18); BUN/CREATININE RATIO 27.8 (10.0-20.0); CALCIUM 9.2 MG/DL (8.5-10.1); CHLORIDE 103 MMOL/L (99-107); CREATININE 1.76 MG/DL (0.40-0.90); GLUCOSE 114 MG/DL (70-104); POTASSIUM 4.4 MMOL/L (3.5-5.1); SODIUM 142 MMOL/L (135-145); TOTAL CARBON DIOXIDE 25.5 MMOL/L (24-32); eGFR 27 ML/MIN
[2023-11-04 10:10] LABS: ALKALINE PHOSPHATASE 205 IU/L (46-116)
[2023-11-04 10:27] LABS: ANISOCYTOSIS 3+; ELLIPTOCYTES FEW; PLATELET ESTIMATE NORMAL
[2023-11-04 10:28] LABS: MICROCYTOSIS 1+; TARGET CELLS FEW
[2023-11-04 10:29] LABS: LARGE PLATELETS FEW
[2023-11-04 10:42] LABS: APTT 31 SECONDS (22-32); PROTHROMBIN TIME 10.8 SECONDS (9.0-12.0)
== END 2023-11-04 23:59 | disposition home or self-care (01) ==
LOC: RAD 08:57
PROVIDERS: ATTEND Student in an Organized Health Care Education/Training Program
DX: I48.91 Unspecified atrial fibrillation (principal); I48.92 Unspecified atrial flutter
CPT/HCPCS: 36415; 80053; 85008; 85025; 85610; 85730

== ENCOUNTER 2023-12-04 06:33 | Inpatient (IN) | payer MEDICARE ==
[2023-11-26 11:59] LABS: BASOPHILS % (AUTO) 0.4 % (0-1); EOSINOPHILS # (AUTO) 0.2 X10'3 (0-0.9); EOSINOPHILS % (AUTO) 2.6 % (0-6); LYMPHOCYTES # (AUTO) 0.9 X10'3 (1.1-4.8); MEAN CORPUSCULAR HEMOGLOBIN 27.1 PG (27.0-31.0); MEAN CORPUSCULAR HGB CONC 32.2 g/dL (33.0-36.5); MEAN CORPUSCULAR VOLUME 84.1 FL (78-98); MEAN PLATELET VOLUME 8.6 FL (7.4-10.4); MONOCYTES # (AUTO) 0.6 X10'3 (0-0.9); MONOCYTES % (AUTO) 10.1 % (2-12); NEUTROPHILS # (AUTO) 4.5 X10'3 (1.8-7.7); NEUTROPHILS % (AUTO) 71.9 % (42-75); PRE OP HEMATOCRIT 38.8 % (35.0-45.0); PRE OP HEMOGLOBIN 12.5 g/dL (12.0-16.0); PRE OP PLATELET COUNT 228 X10'3 (140-440); PRE OP WHITE BLOOD COUNT 6.2 10'3 (4.8-10.8); RED BLOOD COUNT 4.61 X10'6 (4.20-5.60); RED CELL DISTRIBUTION WIDTH 18.9 % (11.5-14.5)
[2023-11-26 12:11] LABS: PRE OP PROTIME 10.9 SECONDS (9.0-12.0)
[2023-11-26 12:13] LABS: BILIRUBIN,URINE NEGATIVE (Neg); CLARITY,URINE CLEAR (Clear); COLOR,URINE YELLOW (Yellow); GLUCOSE, URINE NEGATIVE (Neg); KETONES,URINE NEGATIVE (Neg); LEUKOCYTE ESTERASE ,URINE NEGATIVE (Neg); NITRITES, URINE NEGATIVE (Neg); OCCULT BLOOD,URINE NEGATIVE (Neg); PH,URINE 6.5 (4.8-8.0); PROTEIN,URINE NEGATIVE (Neg); UROBILINOGEN,URINE 0.2 E.U/dL (0.2-1.0)
[2023-11-26 12:17] LABS: UA COLLECTION TYPE CLN CATCH MIDSTREAM
[2023-11-26 12:21] LABS: ALBUMIN 3.7 G/DL (3.4-5.0); ALBUMIN/GLOBULIN RATIO 0.7 (1.1-1.5); ALKALINE PHOSPHATASE 199 IU/L (46-116); BLOOD UREA NITROGEN 65 MG/DL (7-18); BUN/CREATININE RATIO 35.1 (10.0-20.0); CALCIUM 9.2 MG/DL (8.5-10.1); CHLORIDE 105 MMOL/L (99-107); CREATININE 1.85 MG/DL (0.40-0.90); PRE OP ALT 13 U/L (30-65); PRE OP ANION GAP 8 (8-16); PRE OP AST 17 U/L (10-37); PRE OP BILIRUB, TOTAL 0.5 MG/DL (0.0-1.0); PRE OP GLUCOSE 104 MG/DL (70-104); PRE OP POTASSIUM 5.1 MMOL/L (3.4-5.1); PRE OP SODIUM 139 MMOL/L (135-145); TOTAL PROTEIN 8.7 G/DL (6.4-8.2); eGFR 26 ML/MIN
[2023-11-26 12:25] LABS: ANISOCYTOSIS 2+; ELLIPTOCYTES FEW; PLATELET ESTIMATE NORMAL; POIKILOCYTOSIS 1+; TEAR DROP CELLS FEW
[~2023-12-04] VITALS: Ht 160 cm; Wt 72.7 kg
[2023-12-04] VITALS (28 sets, daily range): BP systolic 96–151; BP diastolic 52–78; PULSE 79–86; RESP 6–16; TEMP 97.3–97.8; O2SAT 94–99
[2023-12-04] MEDS: DOCUMENT DATE & TIME OF BETA-BLOCKER PO ONE (05:30)
[2023-12-04] MEDS: cefazolin 2gm/D5W 100mL 100 ML IV ONE (05:30)
[~2023-12-04 06:33] MED LIST changes: +APIX2.5T PO; -ASCO125T PO; -DULO30CA52 PO; +LOSA-415 PO; -POTA-366 PO; +ondansetron/PF 4mg/2ml inj IV PRN
[2023-12-04] MEDS: famotidine 20mg tablet PO ONE (07:28)
[2023-12-04] MEDS: ringers solution, lacted 1,000 ML IV SCH (07:28)
[2023-12-04] MEDS: vancomycin/NS 1 GM in NS 250 ML IV ONE (07:29)
[2023-12-04] MEDS ORDERED: LIDOcaine 1% (10mg/ml) 2ml vial ONE (08:18)
[2023-12-04] MEDS ORDERED: sevoflurane 250ml liquid IH ONE (08:32)
[2023-12-04] MEDS ORDERED: fentaNYL/PF 50MCG/1 ML 2ML syringe ONE (08:38)
[2023-12-04] MEDS ORDERED: iohexol 350MG/ML 100ml bottle IV ONE (08:39)
[2023-12-04] MEDS: protamine sulfate 10mg/ml inj. ONE (09:10)
[2023-12-04] MEDS ORDERED: LIDOcaine 2% (20mg/ml) 5ml vial ONE (09:15)
[2023-12-04] MEDS ORDERED: dexamethasone sod phosphate 4mg/ml inj. ONE (09:15)
[2023-12-04] MEDS ORDERED: midazolam 1 mg/ML 2ml injection ONE (09:15)
[2023-12-04] MEDS ORDERED: ondansetron/PF 4mg/2ml inj ONE (09:15)
[2023-12-04] MEDS ORDERED: rocuronium 10mg/ml inj IV ONE (09:15)
[2023-12-04] MEDS ORDERED: 0.9 % SODIUM CHLORIDE 10 ML VIAL ONE (09:15)
[2023-12-04] MEDS ORDERED: propofol inj 20 ML IV ONE (09:15)
[2023-12-04] MEDS ORDERED: ePHEDrine 50MG/ML INJ. ONE (09:16)
[2023-12-04] MEDS ORDERED: ondansetron/PF 4mg/2ml inj IV PRN ×2 (09:50→10:00)
[2023-12-04] MEDS ORDERED: magnesium 2GM in 50ml NS 50 ML IV PRN (09:50)
[2023-12-04] MEDS ORDERED: potassium Cl 40MEQ/1/2NS 520ml 520 ML IV PRN (09:50)
[2023-12-04] MEDS ORDERED: magnesium 4gm in 100ml NS 100 ML IV PRN (09:50)
[2023-12-04] MEDS ORDERED: acetaminophen 325mg tablet PO PRN (09:50)
[2023-12-04] MEDS ORDERED: proCHLORperazine 10 MG/2 ml inj IV PRN ×2 (09:50→10:00)
[2023-12-04] MEDS ORDERED: hydrALAZINE 20mg/ml inj. IV PRN ×2 (09:50→10:00)
[2023-12-04] MEDS ORDERED: docusate sod 100mg capsule PO PRN (09:50)
[2023-12-04] MEDS ORDERED: diphenhydrAMINE 25mg capsule PO PRN (09:50)
[2023-12-04] MEDS ORDERED: ALPRAZolam 0.25mg tablet PO PRN (09:50)
[2023-12-04] MEDS ORDERED: potassium CL 10mEq/100ml bag 100 ML IV PRN (09:50)
[2023-12-04] MEDS ORDERED: pantoprazole 40mg Tablet.DR PO PRN (09:50)
[2023-12-04] MEDS ORDERED: labetalol 20mg/4ml (5mg/ml) syringe IV PRN ×2 (09:50→10:00)
[2023-12-04] MEDS ORDERED: potassium Cl 20mEq/100mL bag 100 ML IV PRN (09:50)
[2023-12-04] MEDS ORDERED: potassium Cl 40MEQ/270ML bag 250 ML IV PRN (09:50)
[2023-12-04] MEDS ORDERED: potassium Cl 20 mEq SR tablet PO PRN (09:50)
[2023-12-04] MEDS ORDERED: HYDROmorphone/PF 0.2 MG/ML SYRINGE IV PRN (10:00)
[2023-12-04] MEDS ORDERED: morphine 2 MG/ML inj. syringe IV PRN (10:00)
[2023-12-04] MEDS ORDERED: ringers solution, lacted 1,000 ML IV SCH (10:00)
[2023-12-04] MEDS: sod chloride 0.9% 10ml flush syringe IV SCH (16:29)
[2023-12-04] MEDS: normal saline 1000ml 1,000 ML IV SCH (19:50)
[2023-12-04] MEDS: metoprolol succinate 25mg (24-HOUR) SR. Tablet PO SCH (20:18)
[2023-12-04] MEDS: apixaban 2.5mg tablet PO SCH (20:19)
[2023-12-04] MEDS: atorvastatin 20mg tablet PO SCH (20:19)
[2023-12-04] MEDS: pantoprazole 40mg Tablet.DR PO SCH (20:20)
[2023-12-04] MEDS: sacubitril/valsartan 49mg-51mg tablet PO SCH (20:23)
[2023-12-04] MEDS: zolpidem 5mg tablet PO PRN (22:37)
[2023-12-05] VITALS (9 sets, daily range): BP systolic 96–119; BP diastolic 51–63; PULSE 79–82; RESP 14–19; TEMP 97.5–97.9; O2SAT 93–97
[2023-12-05 07:41] LABS: BASOPHILS % (AUTO) 0.2 % (0-1); EOSINOPHILS % (AUTO) 0 % (0-6); HEMATOCRIT 34.6 % (35.0-45.0); HEMOGLOBIN 11.4 g/dl (12.0-16.0); LYMPHOCYTES # (AUTO) 0.6 X10'3 (1.1-4.8); LYMPHOCYTES % (AUTO) 6.8 % (21-51); MEAN CORPUSCULAR HEMOGLOBIN 27.8 PG (27.0-31.0); MEAN CORPUSCULAR HGB CONC 32.9 g/dL (33.0-36.5); MEAN CORPUSCULAR VOLUME 84.4 FL (78-98); MEAN PLATELET VOLUME 8.5 FL (7.4-10.4); MONOCYTES # (AUTO) 0.8 X10'3 (0-0.9); MONOCYTES % (AUTO) 8.5 % (2-12); NEUTROPHILS # (AUTO) 7.8 X10'3 (1.8-7.7); NEUTROPHILS % (AUTO) 84.5 % (42-75); PLATELET COUNT 192 X10'3 (140-440); RED CELL DISTRIBUTION WIDTH 15.4 % (11.5-14.5); WHITE BLOOD COUNT 9.3 X10'3 (4.5-11.0)
[2023-12-05] MEDS: furosemide 40mg tablet PO SCH (08:00)
[2023-12-05] MEDS: spironolactone 25 MG tablet PO SCH (08:00)
[2023-12-05] MEDS: losartan 50mg tablet PO SCH (08:00)
[2023-12-05 08:20] LABS: ALBUMIN/GLOBULIN RATIO 0.7 (1.1-1.5); ALKALINE PHOSPHATASE 157 IU/L (46-116); ANION GAP 9 (8-16); ASPARTATE AMINO TRANSFERASE 13 U/L (10-37); BILIRUBIN,TOTAL 0.5 MG/DL (0.1-1.0); BLOOD UREA NITROGEN 54 MG/DL (7-18); BUN/CREATININE RATIO 26.6 (10.0-20.0); CALCIUM 8.6 MG/DL (8.5-10.1); CHLORIDE 102 MMOL/L (99-107); CREATININE 2.03 MG/DL (0.40-0.90); GLUCOSE 115 MG/DL (70-104); MAGNESIUM 2.4 MG/DL (1.5-2.4); POTASSIUM 5.2 MMOL/L (3.5-5.1); PRO BRAIN NATRIURETIC PEPTIDE 5245 PG/ML (0-450); SODIUM 137 MMOL/L (135-145); TOTAL CARBON DIOXIDE 26.3 MMOL/L (24-32); TOTAL PROTEIN 7.2 G/DL (6.4-8.2); eCRCL 16 ML/MIN; eGFR 23 ML/MIN
[2023-12-05] MEDS: levoTHYROXINE 25mcg tablet PO SCH (08:31)
[2023-12-05 08:42] LABS: ALANINE AMINOTRANSFERASE < 6 U/L (12-78)
[2023-12-05] MEDS: acetaminophen 1,000mg/100ml IV 100 ML IV ONE (16:38)
[2023-12-06 02:00] VITALS: BP 99/56; PULSE 79; RESP 14; TEMP 98.2; O2SAT 93
[2023-12-06 06:00] VITALS: BP 100/52; PULSE 81; RESP 13; TEMP 97.6; O2SAT 95
[2023-12-06 08:00] VITALS: RESP 17; O2SAT 97
== END 2023-12-06 12:47 | disposition home or self-care (01) | DRG 274 ==
LOC: PAS IN 06:33 → PCU 3S 11:56
PROVIDERS: ADMIT Student in an Organized Health Care Education/Training Program; ATTEND Student in an Organized Health Care Education/Training Program
PROC: 03HY32Z Insertion of Monitoring Device into Upper Artery, Percutaneous Approach (ICD-10-PCS; 2023-12-04)
PROC: B246ZZ4 Ultrasonography of Right and Left Heart, Transesophageal (ICD-10-PCS; 2023-12-04)
PROC: 02L73DK Occlusion of Left Atrial Appendage with Intraluminal Device, Percutaneous Approach (ICD-10-PCS; principal; 2023-12-04 08:32)
DX: I48.91 Unspecified atrial fibrillation (principal); Z00.6 Encounter for examination for normal comparison and control in clinical research program; I31.39 Other pericardial effusion (noninflammatory); I11.0 Hypertensive heart disease with heart failure; I50.9 Heart failure, unspecified; F41.9 Anxiety disorder, unspecified; G47.00 Insomnia, unspecified; Z88.5 Allergy status to narcotic agent
CPT/HCPCS: 33340; 36415; 71045; 71046; 76937; 80053; 81003; 82948; 83735; 83880; 84443; 85008; 85025; 85347; 85610; 85730; 86870; 86885; 86900; 86901; 86902; 86905; 86920; 86922; 87081; 93005; 93308; 93312; 93325; A4565; A4615; A4618; A6258; A6402; A6446; A6449; C1760; C1889; C1893; C1894; G0378; J0690; J1100; J1644; J2250; J2405; J2704; J2710; J2720; J3010; J3370; J3490; J7040; J7120; Q9967

== ENCOUNTER 2024-01-13 11:47 | Outpatient (CLI) | payer MEDICARE ==
[2024-01-13] VITALS (16 sets, daily range): BP systolic 105–150; BP diastolic 48–77; PULSE 80–89; RESP 14–22; TEMP 97.3; O2SAT 95–98
[~2024-01-13] VITALS: Ht 160 cm; Wt 72.7 kg
[~2024-01-13 11:47] MED LIST changes: -LOSA-415 PO; -ondansetron/PF 4mg/2ml inj IV PRN
[2024-01-13] MEDS ORDERED: BUME0.5T5 PO (12:44)
[2024-01-13] MEDS ORDERED: LOSA50TA64 PO (12:44)
[2024-01-13 12:47] LABS: BASOPHILS % (AUTO) 0.4 % (0-1); EOSINOPHILS # (AUTO) 0.2 X10'3 (0-0.9); EOSINOPHILS % (AUTO) 2.5 % (0-6); HEMATOCRIT 36.2 % (35.0-45.0); HEMOGLOBIN 11.8 g/dl (12.0-16.0); LYMPHOCYTES # (AUTO) 1.9 X10'3 (1.1-4.8); LYMPHOCYTES % (AUTO) 22.6 % (21-51); MEAN CORPUSCULAR HEMOGLOBIN 27.9 PG (27.0-31.0); MEAN CORPUSCULAR HGB CONC 32.6 g/dL (33.0-36.5); MEAN CORPUSCULAR VOLUME 85.8 FL (78-98); MEAN PLATELET VOLUME 8.6 FL (7.4-10.4); MONOCYTES % (AUTO) 11.6 % (2-12); NEUTROPHILS # (AUTO) 5.2 X10'3 (1.8-7.7); NEUTROPHILS % (AUTO) 62.9 % (42-75); PLATELET COUNT 275 X10'3 (140-440); RED BLOOD COUNT 4.22 X10'6 (4.20-5.60); RED CELL DISTRIBUTION WIDTH 15.5 % (11.5-14.5); WHITE BLOOD COUNT 8.2 X10'3 (4.5-11.0)
[2024-01-13 13:03] LABS: ANION GAP 10 (8-16); BLOOD UREA NITROGEN 94 MG/DL (7-18); BUN/CREATININE RATIO 35.6 (10.0-20.0); CALCIUM 9.2 MG/DL (8.5-10.1); CHLORIDE 101 MMOL/L (99-107); CREATININE 2.64 MG/DL (0.40-0.90); GLUCOSE 112 MG/DL (70-104); POTASSIUM 4.7 MMOL/L (3.5-5.1); SODIUM 136 MMOL/L (135-145); TOTAL CARBON DIOXIDE 25.2 MMOL/L (24-32); eCRCL 12 ML/MIN; eGFR 17 ML/MIN
[2024-01-13 13:18] LABS: APTT 31 SECONDS (22-32)
[2024-01-13] MEDS: MIDAZolam 1mg/ml 10ml vial IV ONE (14:40)
[2024-01-13] MEDS: fentaNYL/PF 50MCG/1 ML 2ML syringe IV ONE (14:40)
== END 2024-01-13 23:59 | disposition home or self-care (01) ==
LOC: SSTAY O 11:47
PROVIDERS: ATTEND Student in an Organized Health Care Education/Training Program
DX: I48.91 Unspecified atrial fibrillation (principal); I31.39 Other pericardial effusion (noninflammatory); I50.1 Left ventricular failure, unspecified; I51.7 Cardiomegaly; Z95.818 Presence of other cardiac implants and grafts
CPT/HCPCS: 36415; 80048; 85025; 85610; 85730; 93312; 93325; J2250; J3010; J7030; A4620

== ENCOUNTER → 2024-05-13 | Outpatient (CLI) | payer MEDICARE ==
[~2024-05-13] MED LIST changes: +BUME0.5T5 PO; -FURO40TA4 PO; +LOSA50TA64 PO
[2024-05-13 13:52] LABS: BASOPHILS % (AUTO) 0.5 % (0-1); EOSINOPHILS # (AUTO) 0.1 X10'3 (0-0.9); EOSINOPHILS % (AUTO) 1.4 % (0-6); HEMATOCRIT 28.1 % (35.0-45.0); HEMOGLOBIN 8.4 g/dl (12.0-16.0); LYMPHOCYTES # (AUTO) 1.2 X10'3 (1.1-4.8); LYMPHOCYTES % (AUTO) 13.7 % (21-51); MEAN CORPUSCULAR HEMOGLOBIN 21.1 PG (27.0-31.0); MEAN CORPUSCULAR HGB CONC 29.9 g/dL (33.0-36.5); MEAN CORPUSCULAR VOLUME 70.5 FL (78-98); MEAN PLATELET VOLUME 7.7 FL (7.4-10.4); MONOCYTES # (AUTO) 0.9 X10'3 (0-0.9); MONOCYTES % (AUTO) 10.8 % (2-12); NEUTROPHILS # (AUTO) 6.4 X10'3 (1.8-7.7); NEUTROPHILS % (AUTO) 73.6 % (42-75); PLATELET COUNT 353 X10'3 (140-440); RED BLOOD COUNT 3.99 X10'6 (4.20-5.60); RED CELL DISTRIBUTION WIDTH 20.4 % (11.5-14.5); WHITE BLOOD COUNT 8.7 X10'3 (4.5-11.0)
[2024-05-13 14:08] LABS: ANISOCYTOSIS 3+; MICROCYTOSIS 1+; PLATELET ESTIMATE NORMAL
[2024-05-13 14:09] LABS: ELLIPTOCYTES FEW; HYPOCHROMASIA 2+
[2024-05-13 14:10] LABS: SCHISTOCYTES FEW
[2024-05-13 14:11] LABS: APTT 27 SECONDS (22-32); INR 1.1 INR; PROTHROMBIN TIME 11.4 SECONDS (9.0-12.0)
[2024-05-13 14:12] LABS: ALBUMIN 3.7 G/DL (3.4-5.0); ANION GAP 12 (8-16); BLOOD UREA NITROGEN 52 MG/DL (7-18); CALCIUM 8.8 MG/DL (8.5-10.1); CHLORIDE 105 MMOL/L (99-107); CREATININE 1.86 MG/DL (0.40-0.90); GLUCOSE 121 MG/DL (70-104); POTASSIUM 3.7 MMOL/L (3.5-5.1); SODIUM 141 MMOL/L (135-145); TOTAL CARBON DIOXIDE 24.5 MMOL/L (24-32); eGFR 26 ML/MIN
== END | disposition home or self-care (01) ==
LOC: LAB 08:00 → EDSTATUS 14:08
PROVIDERS: ATTEND Internal Medicine Interventional Cardiology
DX: Z01.818 Encounter for other preprocedural examination (principal); I65.23 Occlusion and stenosis of bilateral carotid arteries; I10 Essential (primary) hypertension; I48.91 Unspecified atrial fibrillation; E78.49 Other hyperlipidemia
CPT/HCPCS: 36415; 80048; 85008; 85025; 85610; 85730

== ENCOUNTER 2024-06-14 14:05 | Inpatient (IN) | payer MEDICARE ==
[2024-06-11 12:52] LABS: BASOPHILS # (AUTO) 0.1 X10'3 (0-0.2); BASOPHILS % (AUTO) 0.7 % (0-1); EOSINOPHILS # (AUTO) 0.2 X10'3 (0-0.9); EOSINOPHILS % (AUTO) 2.5 % (0-6); HEMATOCRIT 26.4 % (35.0-45.0); HEMOGLOBIN 7.9 g/dl (12.0-16.0); LYMPHOCYTES # (AUTO) 1.2 X10'3 (1.1-4.8); LYMPHOCYTES % (AUTO) 15.1 % (21-51); MEAN CORPUSCULAR HEMOGLOBIN 19.7 PG (27.0-31.0); MEAN CORPUSCULAR HGB CONC 29.9 g/dL (33.0-36.5); MEAN CORPUSCULAR VOLUME 65.8 FL (78-98); MEAN PLATELET VOLUME 8.3 FL (7.4-10.4); MONOCYTES # (AUTO) 0.9 X10'3 (0-0.9); NEUTROPHILS # (AUTO) 5.5 X10'3 (1.8-7.7); NEUTROPHILS % (AUTO) 70.7 % (42-75); PLATELET COUNT 251 X10'3 (140-440); RED CELL DISTRIBUTION WIDTH 20.4 % (11.5-14.5); WHITE BLOOD COUNT 7.8 X10'3 (4.5-11.0)
[2024-06-11 12:56] LABS: ALBUMIN 3.5 G/DL (3.4-5.0); ANION GAP 11 (8-16); BLOOD UREA NITROGEN 46 MG/DL (7-18); BUN/CREATININE RATIO 24.7 (10.0-20.0); CALCIUM 8.7 MG/DL (8.5-10.1); CHLORIDE 106 MMOL/L (99-107); CHOL/HDL RATIO 2.5 (0.00-4.99); CHOLESTEROL 123 MG/DL (0-200); CREATININE 1.86 MG/DL (0.40-0.90); GLUCOSE 105 MG/DL (70-104); HDL CHOLESTEROL 50 MG/DL (35-60); LDL CHOLESTEROL 66 MG/DL (50-100); POTASSIUM 3.6 MMOL/L (3.5-5.1); SODIUM 139 MMOL/L (135-145); TOTAL CARBON DIOXIDE 22.5 MMOL/L (24-32); TRIGLYCERIDES 49 MG/DL (20-135); eGFR 26 ML/MIN
[2024-06-11 12:57] LABS: APTT 26 SECONDS (22-32); INR 1.1 INR; PROTHROMBIN TIME 11.7 SECONDS (9.0-12.0)
[2024-06-11 13:52] LABS: PLATELET ESTIMATE NORMAL; POIKILOCYTOSIS 2+
[2024-06-11 13:54] LABS: HYPOCHROMASIA 2+; TARGET CELLS FEW
[2024-06-11 13:55] LABS: ELLIPTOCYTES FEW; SCHISTOCYTES 1+; TEAR DROP CELLS FEW
[2024-06-11 13:57] LABS: ACANTHOCYTES FEW
[2024-06-11 13:58] LABS: ANISOCYTOSIS 3+; MICROCYTOSIS 2+
[2024-06-14] VITALS (16 sets, daily range): BP systolic 83–152; BP diastolic 34–69; PULSE 79–81; RESP 16–20; TEMP 97.6–98.3; O2SAT 91–96
[~2024-06-14] VITALS: Ht 160 cm; Wt 73.0 kg
[2024-06-14] MEDS ORDERED: diphenhydrAMINE 25mg capsule PO PRN (14:35)
[2024-06-14] MEDS ORDERED: LORazepam 0.5 MG tablet PO PRN (14:35)
[2024-06-14] MEDS: normal saline 1,000 ML IV SCH (14:35)
[2024-06-14] MEDS ORDERED: FEBU40TA6 PO (15:24)
[2024-06-14] MEDS ORDERED: atropine 0.1mg/ml 10ml syringe ONE (15:47)
[2024-06-14] MEDS ORDERED: heparin 1,000unit/ml 10ml vial 10 ML ONE (15:47)
[2024-06-14] MEDS ORDERED: iohexol 350MG/ML 100ml bottle IV ONE (15:47)
[2024-06-14] MEDS ORDERED: phenylephrine 10mg/ml inj. -priapism dosing ONE (15:47)
[2024-06-14] MEDS ORDERED: LIDOcaine 1% 30ml preserv. free vial ONE (15:47)
[2024-06-14] MEDS ORDERED: DOPamine 400mg/D5W 250ml 0 ML IV ONE (15:48)
[2024-06-14] MEDS ORDERED: clopidogrel 300mg tablet ONE (16:55)
[2024-06-14] MEDS ORDERED: zolpidem 5mg tablet PO PRN (17:55)
[2024-06-14] MEDS ORDERED: nitroGLYCERIN 0.4mg SUBLingual tab SL PRN (18:15)
[2024-06-14] MEDS ORDERED: HYDROcodone/acetaminophen 10/325mg tab PO PRN (18:15)
[2024-06-14] MEDS ORDERED: OXAZEpam 15mg capsule PO PRN (18:15)
[2024-06-14] MEDS: HYDROcodone/acetaminophen 10/325mg tab PO PRN (18:21)
[2024-06-14] MEDS: pseudoephedrine 30mg tablet PO ONE (18:23)
[2024-06-14] MEDS ORDERED: hydrALAZINE 20mg/ml inj. IV PRN (18:25)
[2024-06-14] MEDS: metoprolol succinate 25mg (24-HOUR) SR. Tablet PO SCH (20:00)
[2024-06-14] MEDS: HYDROcodone/acetaminophen 5mg/325mg tablet PO PRN (21:49)
[2024-06-14] MEDS: simvastatin 20mg tablet PO SCH (21:49)
[2024-06-14] MEDS: pantoprazole 40mg Tablet.DR PO SCH (21:49)
[2024-06-15 02:00] VITALS: BP 100/48; PULSE 80; RESP 16; TEMP 97.3; O2SAT 96
[2024-06-15 06:00] VITALS: BP 103/54; PULSE 80; RESP 15; TEMP 97.5; O2SAT 92
[2024-06-15] MEDS ORDERED: CLOP75TA34 PO (07:29)
[2024-06-15] MEDS ORDERED: ASPI81TA52 PO (07:29)
[2024-06-15 08:00] VITALS: RESP 15; O2SAT 95
[2024-06-15] MEDS: spironolactone 25 MG tablet PO SCH (08:00)
[2024-06-15] MEDS: losartan 50mg tablet PO SCH (08:00)
[2024-06-15] MEDS: febuxostat 40mg tablet PO SCH (08:00)
[2024-06-15] MEDS: levoTHYROXINE 25mcg tablet PO SCH (08:30)
[2024-06-15] MEDS: pseudoephedrine 30mg tablet PO PRN (08:57)
[2024-06-15 09:00] VITALS: BP 89/51
[2024-06-15 11:00] VITALS: BP 113/54; PULSE 80; RESP 17; TEMP 97.6; O2SAT 95
== END 2024-06-15 15:00 | disposition home or self-care (01) | DRG 36 ==
LOC: SSTAY O 14:05 → PCU 3S 17:00
PROVIDERS: ADMIT Internal Medicine Interventional Cardiology; ATTEND Internal Medicine Interventional Cardiology
PROC: 037L34Z Dilation of Left Internal Carotid Artery with Drug-eluting Intraluminal Device, Percutaneous Approach (ICD-10-PCS; principal; 2024-06-14)
PROC: B41F1ZZ Fluoroscopy of Right Lower Extremity Arteries using Low Osmolar Contrast (ICD-10-PCS; 2024-06-14)
PROC: B3141ZZ Fluoroscopy of Left Common Carotid Artery using Low Osmolar Contrast (ICD-10-PCS; 2024-06-14)
PROC: 037J34Z Dilation of Left Common Carotid Artery with Drug-eluting Intraluminal Device, Percutaneous Approach (ICD-10-PCS; 2024-06-14)
DX: I65.22 Occlusion and stenosis of left carotid artery (principal); Z00.6 Encounter for examination for normal comparison and control in clinical research program
CPT/HCPCS: 36415; 37215; 80048; 80061; 84132; 85008; 85025; 85610; 85730; 87081; 93005; 96360; 99152; 99153; A6258; C1725; C1769; C1876; C1884; C1887; C1894; G0378; J0461; J1265; J1644; J2370; J3490; J7030; Q9967

== ENCOUNTER 2024-08-03 06:36 | Emergency (ER) | payer MEDICARE ==
[~2024-08-03] VITALS: Ht 160 cm; Wt 73.0 kg
[~2024-08-03 06:36] MED LIST changes: -APIX2.5T PO; -BUME0.5T5 PO; +CLOP75TA34 PO; +FEBU40TA6 PO; -LOSA50TA64 PO; -METO-411 PO; -SACU1TAB7 PO; -SPIR25TA5 PO
[2024-08-03 06:56] VITALS: TEMP 96.8
[2024-08-03 08:24] VITALS: BP 103/54; PULSE 80; RESP 16; O2SAT 97
== END 2024-08-03 08:45 | disposition home or self-care (01) ==
LOC: ER 06:36
DX: I73.9 Peripheral vascular disease, unspecified (principal); R60.9 Edema, unspecified; I48.91 Unspecified atrial fibrillation; N18.9 Chronic kidney disease, unspecified; Z91.81 History of falling; Z88.5 Allergy status to narcotic agent; Z95.0 Presence of cardiac pacemaker; Z90.710 Acquired absence of both cervix and uterus; Z79.899 Other long term (current) drug therapy; Z87.19 Personal history of other diseases of the digestive system; W07.XXXA Fall from chair, initial encounter; Y93.89 Activity, other specified; Y92.89 Other specified places as the place of occurrence of the external cause; Y99.8 Other external cause status
CPT/HCPCS: 93922; 93970; 99284